=== PATIENT | male | born 1940 | race Caucasian/White ===

== ENCOUNTER 2018-10-11 18:38 | Inpatient (IN) ==
--- NOTE | 2018-10-11 18:54 | Emergency Department Note ---
Disposition Clinical Impression: Acute exacerbation of chronic obstructive airways disease Pneumonia Qualifiers: Pneumonia type: due to unspecified organism Laterality: right Lung location: lower lobe of lung Qualified Code(s): J18.1 - Lobar pneumonia, unspecified organism Sepsis Qualifiers: Sepsis type: sepsis due to unspecified organism Qualified Code(s): A41.9 - Sepsis, unspecified organism Disposition: Admitted As Inpatient Condition: Fair Time of Disposition: 21:33 General Adult HPI - General Chief complaint: ED Shortness of Breath/Dyspnea Stated complaint: MADDIE Time Seen by Provider: 10/11/18 18:54 Source: patient Limitations: no limitations Nursing Notes Reviewed: Yes Vital Signs Reviewed: Yes - History of Present Illness HPI Narrative: Patient is a 78-year-old male presenting with cough and fever. History of hypertension, hyperlipidemia and diabetes, which all treated by diet. Patient a lso with a known history of COPD, not chronically on oxygen at home. Patient states that he has been having increased cough with change in sputum with fever at home. Temperature at home was 102.0 Fahrenheit. Today he did have to use oxygen, had up to 5 L nasal cannula, as his oxygen dropped to 80% while walking. Patient denies any nausea, vomiting or recent abdominal pain. No urinary symptoms or changes in stool. He denies any recent hospitalizations or history of dialysis. No recent steroid or antibiotic use. Patient denies any chest pain. Pain Scale: 8 - Related Data Home Medications Medication Instructions Recorded Confirmed Baclofen [Lioresal] 10 mg PO TID 08/08/17 10/11/18 Cholecalciferol (D-3) [Vitamin D] 1,000 unit PO DAILY 08/08/17 10/11/18 Gabapentin [Neurontin] 600 mg PO TID 08/08/17 10/11/18 GlipiZIDE [Glipizide Xl] 5 mg PO DAILY 08/08/17 10/11/18 Lisinopril [Zestril] 20 mg PO DAILY 08/08/17 10/11/18 Cetirizine HCl [Zyrtec] 10 mg PO DAILY 10/11/18 10/11/18 Guaifenesin [Mucinex] 600 mg PO PRN PRN 10/11/18 10/11/18 Vitamin E Acid Succinate [Vitamin 400 units PO DAILY 10/11/18 10/11/18 E] Previous Rx's Medication Instructions Recorded Clopidogrel [Plavix] 75 mg PO DAILY #30 tablet 08/08/17 GuaiFENesin/Dextromethorphan 10 ml PO QID PRN #240 ml 05/19/18 [Tussin Dm Syrup] Allergies Allergy/AdvReac Type Severity Reaction Status Date / Time morphine Allergy Hives Verified 05/19/18 16:40 All systems ED: reviewed and negative except as stated. Review of Systems: As Per HPI Constitutional: Reports: fever, chills ENT ED: Reports: congestion Cardiovascular: Reports: dyspnea on exertion. Denies: chest pain, palpitations, syncope Respiratory: Reports: cough, dyspnea, sputum production. Denies: wheezes, hemoptysis Gastrointestinal: Denies: abdominal pain, nausea, vomiting Genitourinary: Denies: urgency Musculoskeletal: Denies: back pain Integumentary: Denies: rash Neurological: Denies: headache, weakness, confusion Psychiatric: Denies: anxiety Endocrine: Denies: fatigue Hematological/Lymphatic: Denies: easy bleeding Past Medical History - Past Medical History Medical history: Reports: COPD, diabetes Surgical history: Reports: orthopedic, other, other Psychiatric history: Reports: no psych history - Social History Smoking Status: Current every day smoker Smokeless Tobacco Status: No Alcohol use: Reports: none Drug use: Reports: none Physical Exam - General Limitations: no limitations General appearance: alert - Head Head exam: atraumatic, normocephalic, normal inspection - Eye Eye exam: Present: normal appearance, PERRL, EOMI - ENT ENT exam: mucous membranes dry - Chest Chest inspection: Present: normal inspection, symmetric chest wall rise - Respiratory Respiratory exam: Present: prolonged expiratory phase, other (Patient with diffuse rhonchi to the bases bilaterally, crackles to the right lower lobe) - Cardiovascular Cardiovascular exam: Present: normal rhythm, tachycardia - Abdominal Exam Abdominal exam: Present: soft, Non-Tender. Absent: tenderness, distention, guarding, rebound, rigidity - Extremities Exam Extremities exam: Present: normal inspection, full ROM. Absent: tenderness, pedal edema - Neurological Exam Neurological exam: Present: alert, oriented X3 - Psychiatric Psychiatric exam: Present: normal affect, normal mood - Skin Skin exam: Present: warm, dry, intact, normal color. Absent: diaphoresis Course Vital Signs Temperature 99.5 F 10/11/18 18:39 Pulse Rate 108 10/11/18 18:39 Respiratory Rate 24 10/11/18 18:39 Blood Pressure 146/69 10/11/18 18:39 O2 Sat by Pulse Oximetry 98 10/11/18 18:39 Temperature 98.7 F 10/11/18 22:26 Pulse Rate 122 10/11/18 22:26 Respiratory Rate 14 10/11/18 22:26 Blood Pressure 167/70 10/11/18 22:26 O2 Sat by Pulse Oximetry 96 10/11/18 22:26 Oxygen Delivery Oxygen Delivery Nasal Cannula Medical Decision Making - [facility] Narrative Medical decision making narrative: Patient is a 78-year-old male who is presenting with cough and fever. On arrival, patient is nontoxic however appears unwell, he is using increased oxygen at home with a baseline of no oxygen use, he had a tetanus up to 5 L today due to shortness of breath. Patient is tachycardic, he is afebrile but does feel warm. Nurse recheck temperature later on it was febrile 102. Patient was initially given 1 L normal saline with unknown pumping function. CBC, BMP, lactic acid, blood cultures, chest x-ray were initiated. Patient was also given a DuoNeb 3, prednisone 40 mg by mouth. On reevaluation, patient continues to have the crackles to the right lower base. He feels this is most likely clinical pneumonia although chest x-ray does not yet show opacification. Chronically he does appear dry suspect this is most likely pneumonia. No recent hospitalizations. We will go ahead and give the patient to second liter of fluids, as he remains tachycardic. CBC, BMP and urine to show the patient to be slightly dehydrated however no leukocytosis. No sign of acute kidney injury. As patient remains tachycardic, he remains on 4 L nasal cannula, he remains dyspneic and tachycardic, as well as pneumonia clinically feels that the patient would be most appropriate for admission at this time. Patient agrees with disposition of admission. - Medical Records Medical records reviewed: Yes I reviewed the patient's medical records. - Lab Data Lab results reviewed: Yes I reviewed the patient's lab results. Result diagrams: 10/11/18 18:44 10/11/18 18:44 Lab Results 10/11/18 10/11/18 10/11/18 Range/Units 18:44 18:44 18:44 WBC 8.3 (4.3-11.1) K/mcL RBC 3.45 L (4.19-5.50) M/mcL Hgb 12.3 L (12.9-16.9) g/dL Hct 36.9 L (37.5-50.1) % MCV 107.0 H (83.0-100.0) fL MCH 35.7 H (28.0-33.3) pg MCHC 33.3 (31.6-35.5) g/dL RDW 11.9 (11.5-14.5) % Plt Count 264 (140-400) K/mcL MPV 9.8 (9.4-12.4) fL Immature Gran % 0.2 (0-4) % Seg Neutrophils % 71.0 % Lymphocytes % 13.1 % Monocytes % 14.5 % Eosinophils % 0.7 % Basophils % 0.5 % Neutrophils # 5.9 (1.6-8.9) K/mcL Lymphocytes # 1.1 (0.6-4.6) K/mcL Monocytes # 1.2 (0.0-1.3) K/mcL Eosinophils # 0.1 (0.0-0.6) K/mcL Basophils # 0.0 (0.0-0.2) K/mcL PT 12.6 H (9.4-12.1) Seconds INR 1.1 APTT 29.9 (26.0-36.0) Seconds Sodium 138 (136-145) mEq/L Potassium 4.0 (3.5-5.1) mEq/L Chloride 100 (98-107) mEq/L Carbon Dioxide 29 (23-29) mEq/L BUN 14 (8-23) mg/dL Creatinine 1.01 (0.70-1.30) mg/dL Est GFR ( Amer) > 60 (> 60) Est GFR (Non-Af Amer) > 60 (> 60) BUN/Creatinine Ratio 14 (6-26) Glucose 177 H (70-105) mg/dL Calculated Osmolality 291 (280-300) Lactic Acid (0.5-2.2) mmol/L Calcium 9.5 (8.6-10.3) mg/dL Phosphorus 2.1 L (2.7-4.5) mg/dL Magnesium 1.8 (1.6-2.6) mg/dL Total Bilirubin 0.7 (0.3-1.0) mg/dL Direct Bilirubin 0.2 (0.0-0.2) mg/dL Indirect Bilirubin 0.5 (0.0-1.2) mg/dL AST 15 (13-39) Units/L ALT 8 (7-52) Units/L Alkaline Phosphatase 83 (34-104) Units/L Troponin I < 0.03 (< 0.04) ng/mL Serum Total Protein 7.0 (6.4-8.9) g/dL Albumin 4.0 (3.5-5.7) g/dL Globulin 3.0 (2.4-3.5) g/dL Albumin/Globulin Ratio 1.3 (1.1-2.2) Urine Color (Yellow) Urine Clarity (Clear) Urine pH (5.0-8.0) pH Units Ur Specific [place] (1.010-1.025) Urine Protein (Neg-Trace) mg/dL Urine Glucose (UA) (Normal) mg/dL Urine Ketones (Negative) mg/dL Urine Blood (Negative) Urine Nitrite (Negative) Urine Bilirubin (Negative) Urine Urobilinogen (Normal) mg/dL Ur Leukocyte Esterase (Negative) Urine Microscopic RBC (0-3) per hpf Urine Microscopic WBC (0-3) per hpf Ur Squamous Epith Cells (None-Few) per lpf Urine Bacteria (None-Few) per hpf Hyaline Casts (None-Few) per lpf Ur Culture Indicated? (NO) 10/11/18 10/11/18 Range/Units 19:43 20:25 WBC (4.3-11.1) K/mcL RBC (4.19-5.50) M/mcL Hgb (12.9-16.9) g/dL Hct (37.5-50.1) % MCV (83.0-100.0) fL MCH (28.0-33.3) pg MCHC (31.6-35.5) g/dL RDW (11.5-14.5) % Plt Count (140-400) K/mcL MPV (9.4-12.4) fL Immature Gran % (0-4) % Seg Neutrophils % % Lymphocytes % % Monocytes % % Eosinophils % % Basophils % % Neutrophils # (1.6-8.9) K/mcL Lymphocytes # (0.6-4.6) K/mcL Monocytes # (0.0-1.3) K/mcL Eosinophils # (0.0-0.6) K/mcL Basophils # (0.0-0.2) K/mcL PT (9.4-12.1) Seconds INR APTT (26.0-36.0) Seconds Sodium (136-145) mEq/L Potassium (3.5-5.1) mEq/L Chloride (98-107) mEq/L Carbon Dioxide (23-29) mEq/L BUN (8-23) mg/dL Creatinine (0.70-1.30) mg/dL Est GFR ( Amer) (> 60) Est GFR (Non-Af Amer) (> 60) BUN/Creatinine Ratio (6-26) Glucose (70-105) mg/dL Calculated Osmolality (280-300) Lactic Acid 1.2 (0.5-2.2) mmol/L Calcium (8.6-10.3) mg/dL Phosphorus (2.7-4.5) mg/dL Magnesium (1.6-2.6) mg/dL Total Bilirubin (0.3-1.0) mg/dL Direct Bilirubin (0.0-0.2) mg/dL Indirect Bilirubin (0.0-1.2) mg/dL AST (13-39) Units/L ALT (7-52) Units/L Alkaline Phosphatase (34-104) Units/L Troponin I (< 0.04) ng/mL Serum Total Protein (6.4-8.9) g/dL Albumin (3.5-5.7) g/dL Globulin (2.4-3.5) g/dL Albumin/Globulin Ratio (1.1-2.2) Urine Color Yellow (Yellow) Urine Clarity Clear (Clear) Urine pH 6.0 (5.0-8.0) pH Units Ur Specific [place] 1.026 H (1.010-1.025) Urine Protein 100 H (Neg-Trace) mg/dL Urine Glucose (UA) Normal (Normal) mg/dL Urine Ketones 15 H (Negative) mg/dL Urine Blood Negative (Negative) Urine Nitrite Negative (Negative) Urine Bilirubin Negative (Negative) Urine Urobilinogen 2.0 H (Normal) mg/dL Ur Leukocyte Esterase Negative (Negative) Urine Microscopic RBC 5-15 H (0-3) per hpf Urine Microscopic WBC 0-3 (0-3) per hpf Ur Squamous Epith Cells Moderate H (None-Few) per lpf Urine Bacteria None Seen (None-Few) per hpf Hyaline Casts None Seen (None-Few) per lpf Ur Culture Indicated? NO (NO) - Radiology Data Radiology results reviewed: Yes I reviewed the patient's radiology results. Chest X-Ray 10/11/18 19:15 IMPRESSION: Stable portable study. D/ / Heather Jernigan Cha, MD / Heather Jernigan Cha, MD Interpreting Provider: Heather Jernigan Cha, MD - EKG Data EKG #1 EKG attestation: Yes I reviewed and interpreted this EKG. EKG results narrative: EKG shows sinus tachycardia with regular rhythm, normal axis, no ischemic changes.
[2018-10-11] MEDS ORDERED: 0.9 % Sodium Chloride 1,000 ML IVC ONE ×2 (19:14→21:06)
[2018-10-11 19:32] LABS: Basophils % 0.5 %; Eosinophils # 0.1 K/mcL (0.0-0.6); Eosinophils % 0.7 %; Hematocrit 36.9 % (37.5-50.1); Hemoglobin 12.3 g/dL (12.9-16.9); Immature Granulocytes % 0.2 % (0-4); Lymphocytes # 1.1 K/mcL (0.6-4.6); Lymphocytes % 13.1 %; Mean Corpuscular HGB Conc 33.3 g/dL (31.6-35.5); Mean Corpuscular Hemoglobin 35.7 pg (28.0-33.3); Mean Platelet Volume 9.8 fL (9.4-12.4); Monocytes # 1.2 K/mcL (0.0-1.3); Monocytes % 14.5 %; Neutrophils # 5.9 K/mcL (1.6-8.9); Platelet Count 264 K/mcL (140-400); Red Blood Count 3.45 M/mcL (4.19-5.50); Red Cell Distribution Width 11.9 % (11.5-14.5); White Blood Count 8.3 K/mcL (4.3-11.1)
[2018-10-11 19:45] LABS: INR 1.1; Prothrombin Time 12.6 Seconds (9.4-12.1)
[2018-10-11 19:48] LABS: Activated Partial Thrombo Time 29.9 Seconds (26.0-36.0)
[2018-10-11 19:54] LABS: Alanine Aminotransferase 8 Units/L (7-52); Albumin/Globulin Ratio 1.3 (1.1-2.2); Alkaline Phosphatase 83 Units/L (34-104); Aspartate Amino Transferase 15 Units/L (13-39); BUN/Creatinine Ratio 14 (6-26); Bilirubin,Direct 0.2 mg/dL (0.0-0.2); Bilirubin,Indirect 0.5 mg/dL (0.0-1.2); Bilirubin,Total 0.7 mg/dL (0.3-1.0); Blood Urea Nitrogen 14 mg/dL (8-23); Calcium 9.5 mg/dL (8.6-10.3); Carbon Dioxide 29 mEq/L (23-29); Chloride 100 mEq/L (98-107); Glucose 177 mg/dL (70-105); Magnesium 1.8 mg/dL (1.6-2.6); Osmolality,Calculated 291 (280-300); Phosphorous 2.1 mg/dL (2.7-4.5); Sodium 138 mEq/L (136-145); Troponin I < 0.03 ng/mL (< 0.04); eGFR For African Americans > 60 (> 60); eGFR For Non-African Americans > 60 (> 60)
[2018-10-11] MEDS ORDERED: Ipratropium/Albuterol Neb 3 ML IH ONE (20:04)
[2018-10-11] MEDS ORDERED: methylPREDNISolone 125 MG/2 ML VIAL IVP ONE (20:04)
[2018-10-11] MEDS ORDERED: predniSONE 20 MG TABLET PO ONE (20:06)
[2018-10-11 20:37] LABS: Bilirubin,Urine Negative (Negative); Blood,Urine Negative (Negative); Clarity,Urine Clear (Clear); Glucose,Urine (UA) Normal (Normal); Ketones,Urine 15 mg/dL (Negative); Leukocyte Esterase,Urine Negative (Negative); Nitrite,Urine Negative (Negative); Protein,Urine 100 mg/dL (Neg-Trace); Specific Gravity,Urine 1.026 (1.010-1.025)
[2018-10-11 20:38] LABS: Bacteria,Urine None Seen per hpf (None-Few); Hyaline Casts,Urine None Seen per lpf (None-Few); Squamous Epithelial Cell,Urine Moderate per lpf (None-Few); WBC,Urine 0-3 per hpf (0-3)
[2018-10-11 20:39] LABS: Color,Urine Yellow (Yellow)
[2018-10-11] MEDS ORDERED: Albuterol Neb 1.25 MG/3 ML VIAL IH ONE (21:06)
[2018-10-11] MEDS ORDERED: cefTRIAXone 1,000 MG in Water for inj. (sterile) 10 ML IVP ONE (21:07)
[2018-10-11] MEDS ORDERED: Azithromycin 500 MG in D5% in Water 250 ML IVPB ONE (21:07)
[2018-10-11] MEDS ORDERED: Albuterol 2.5 MG/3 ML NEBULIZER IH STA (21:15)
--- NOTE | 2018-10-11 21:19 | Emergency Department Note ---
Disposition Clinical Impression: Acute exacerbation of chronic obstructive airways disease Pneumonia Qualifiers: Pneumonia type: due to unspecified organism Laterality: right Lung location: lower lobe of lung Qualified Code(s): J18.1 - Lobar pneumonia, unspecified organism Sepsis Qualifiers: Sepsis type: sepsis due to unspecified organism Qualified Code(s): A41.9 - Sepsis, unspecified organism Disposition: Admitted As Inpatient Condition: Fair Time of Disposition: 21:33 General Adult HPI - General Chief complaint: ED Shortness of Breath/Dyspnea Stated complaint: MADDIE Time Seen by Provider: 10/11/18 18:54 Source: patient Limitations: no limitations - History of Present Illness Pain Scale: 8 - Related Data Home Medications Medication Instructions Recorded Confirmed Baclofen [Lioresal] 10 mg PO TID 08/08/17 10/11/18 Cholecalciferol (D-3) [Vitamin D] 1,000 unit PO DAILY 08/08/17 10/11/18 Gabapentin [Neurontin] 600 mg PO TID 08/08/17 10/11/18 GlipiZIDE [Glipizide Xl] 5 mg PO DAILY 08/08/17 10/11/18 Lisinopril [Zestril] 20 mg PO DAILY 08/08/17 10/11/18 Cetirizine HCl [Zyrtec] 10 mg PO DAILY 10/11/18 10/11/18 Guaifenesin [Mucinex] 600 mg PO PRN PRN 10/11/18 10/11/18 Vitamin E Acid Succinate [Vitamin 400 units PO DAILY 10/11/18 10/11/18 E] Previous Rx's Medication Instructions Recorded Clopidogrel [Plavix] 75 mg PO DAILY #30 tablet 08/08/17 GuaiFENesin/Dextromethorphan 10 ml PO QID PRN #240 ml 05/19/18 [Tussin Dm Syrup] Allergies Allergy/AdvReac Type Severity Reaction Status Date / Time morphine Allergy Hives Verified 05/19/18 16:40 Past Medical History - Past Medical History Medical history: Reports: COPD, diabetes Surgical history: Reports: orthopedic, other, other Psychiatric history: Reports: no psych history - Social History Smoking Status: Current every day smoker Smokeless Tobacco Status: No Alcohol use: Reports: none Drug use: Reports: none Physical Exam - General Limitations: no limitations General appearance: alert Course Vital Signs Temperature 99.5 F 10/11/18 18:39 Pulse Rate 108 10/11/18 18:39 Respiratory Rate 24 10/11/18 18:39 Blood Pressure 146/69 10/11/18 18:39 O2 Sat by Pulse Oximetry 98 10/11/18 18:39 Temperature 102.1 F H 10/11/18 20:57 Pulse Rate 125 10/11/18 20:57 Respiratory Rate 30 10/11/18 20:57 Blood Pressure 156/91 10/11/18 20:57 O2 Sat by Pulse Oximetry 98 10/11/18 20:57 Oxygen Delivery Oxygen Delivery Nasal Cannula Medical Decision Making - Lab Data Result diagrams: 10/11/18 18:44 10/11/18 18:44 Lab Results 10/11/18 10/11/18 10/11/18 Range/Units 18:44 18:44 18:44 WBC 8.3 (4.3-11.1) K/mcL RBC 3.45 L (4.19-5.50) M/mcL Hgb 12.3 L (12.9-16.9) g/dL Hct 36.9 L (37.5-50.1) % MCV 107.0 H (83.0-100.0) fL MCH 35.7 H (28.0-33.3) pg MCHC 33.3 (31.6-35.5) g/dL RDW 11.9 (11.5-14.5) % Plt Count 264 (140-400) K/mcL MPV 9.8 (9.4-12.4) fL Immature Gran % 0.2 (0-4) % Seg Neutrophils % 71.0 % Lymphocytes % 13.1 % Monocytes % 14.5 % Eosinophils % 0.7 % Basophils % 0.5 % Neutrophils # 5.9 (1.6-8.9) K/mcL Lymphocytes # 1.1 (0.6-4.6) K/mcL Monocytes # 1.2 (0.0-1.3) K/mcL Eosinophils # 0.1 (0.0-0.6) K/mcL Basophils # 0.0 (0.0-0.2) K/mcL PT 12.6 H (9.4-12.1) Seconds INR 1.1 APTT 29.9 (26.0-36.0) Seconds Sodium 138 (136-145) mEq/L Potassium 4.0 (3.5-5.1) mEq/L Chloride 100 (98-107) mEq/L Carbon Dioxide 29 (23-29) mEq/L BUN 14 (8-23) mg/dL Creatinine 1.01 (0.70-1.30) mg/dL Est GFR ( Amer) > 60 (> 60) Est GFR (Non-Af Amer) > 60 (> 60) BUN/Creatinine Ratio 14 (6-26) Glucose 177 H (70-105) mg/dL Calculated Osmolality 291 (280-300) Lactic Acid (0.5-2.2) mmol/L Calcium 9.5 (8.6-10.3) mg/dL Phosphorus 2.1 L (2.7-4.5) mg/dL Magnesium 1.8 (1.6-2.6) mg/dL Total Bilirubin 0.7 (0.3-1.0) mg/dL Direct Bilirubin 0.2 (0.0-0.2) mg/dL Indirect Bilirubin 0.5 (0.0-1.2) mg/dL AST 15 (13-39) Units/L ALT 8 (7-52) Units/L Alkaline Phosphatase 83 (34-104) Units/L Troponin I < 0.03 (< 0.04) ng/mL Serum Total Protein 7.0 (6.4-8.9) g/dL Albumin 4.0 (3.5-5.7) g/dL Globulin 3.0 (2.4-3.5) g/dL Albumin/Globulin Ratio 1.3 (1.1-2.2) Urine Color (Yellow) Urine Clarity (Clear) Urine pH (5.0-8.0) pH Units Ur Specific [place] (1.010-1.025) Urine Protein (Neg-Trace) mg/dL Urine Glucose (UA) (Normal) mg/dL Urine Ketones (Negative) mg/dL Urine Blood (Negative) Urine Nitrite (Negative) Urine Bilirubin (Negative) Urine Urobilinogen (Normal) mg/dL Ur Leukocyte Esterase (Negative) Urine Microscopic RBC (0-3) per hpf Urine Microscopic WBC (0-3) per hpf Ur Squamous Epith Cells (None-Few) per lpf Urine Bacteria (None-Few) per hpf Hyaline Casts (None-Few) per lpf Ur Culture Indicated? (NO) 10/11/18 10/11/18 Range/Units 19:43 20:25 WBC (4.3-11.1) K/mcL RBC (4.19-5.50) M/mcL Hgb (12.9-16.9) g/dL Hct (37.5-50.1) % MCV (83.0-100.0) fL MCH (28.0-33.3) pg MCHC (31.6-35.5) g/dL RDW (11.5-14.5) % Plt Count (140-400) K/mcL MPV (9.4-12.4) fL Immature Gran % (0-4) % Seg Neutrophils % % Lymphocytes % % Monocytes % % Eosinophils % % Basophils % % Neutrophils # (1.6-8.9) K/mcL Lymphocytes # (0.6-4.6) K/mcL Monocytes # (0.0-1.3) K/mcL Eosinophils # (0.0-0.6) K/mcL Basophils # (0.0-0.2) K/mcL PT (9.4-12.1) Seconds INR APTT (26.0-36.0) Seconds Sodium (136-145) mEq/L Potassium (3.5-5.1) mEq/L Chloride (98-107) mEq/L Carbon Dioxide (23-29) mEq/L BUN (8-23) mg/dL Creatinine (0.70-1.30) mg/dL Est GFR ( Amer) (> 60) Est GFR (Non-Af Amer) (> 60) BUN/Creatinine Ratio (6-26) Glucose (70-105) mg/dL Calculated Osmolality (280-300) Lactic Acid 1.2 (0.5-2.2) mmol/L Calcium (8.6-10.3) mg/dL Phosphorus (2.7-4.5) mg/dL Magnesium (1.6-2.6) mg/dL Total Bilirubin (0.3-1.0) mg/dL Direct Bilirubin (0.0-0.2) mg/dL Indirect Bilirubin (0.0-1.2) mg/dL AST (13-39) Units/L ALT (7-52) Units/L Alkaline Phosphatase (34-104) Units/L Troponin I (< 0.04) ng/mL Serum Total Protein (6.4-8.9) g/dL Albumin (3.5-5.7) g/dL Globulin (2.4-3.5) g/dL Albumin/Globulin Ratio (1.1-2.2) Urine Color Yellow (Yellow) Urine Clarity Clear (Clear) Urine pH 6.0 (5.0-8.0) pH Units Ur Specific [place] 1.026 H (1.010-1.025) Urine Protein 100 H (Neg-Trace) mg/dL Urine Glucose (UA) Normal (Normal) mg/dL Urine Ketones 15 H (Negative) mg/dL Urine Blood Negative (Negative) Urine Nitrite Negative (Negative) Urine Bilirubin Negative (Negative) Urine Urobilinogen 2.0 H (Normal) mg/dL Ur Leukocyte Esterase Negative (Negative) Urine Microscopic RBC 5-15 H (0-3) per hpf Urine Microscopic WBC 0-3 (0-3) per hpf Ur Squamous Epith Cells Moderate H (None-Few) per lpf Urine Bacteria None Seen (None-Few) per hpf Hyaline Casts None Seen (None-Few) per lpf Ur Culture Indicated? NO (NO) Attestation Statement - Attestation Attestation: I examined this patient and my medical decision-making was reviewed with the Resident Physician. I agree with the documented findings, disposition and treatment plan as described except to the extent set forth below.\ With initial negative chest x-ray, working diagnosis was COPD exacerbation and blood cultures were held.. However, patient spiked a temperature. Had no response to initial round of nebulizer treatment. Has abnormal breath sounds on expiration throughout both lung medrano, but has not territory crackles at the right base. Clinically the picture is consistent with pneumonia. Blood cultures were reordered since the patient meets Sirs criteria and will be dasha ated for sepsis. Clinically he does not seem dry, but his specific gravity is a little high and there is a small amount of ketones in his urine, so the possibility of an infiltrate that is not evident on chest x-ray will become evident as he becomes more hydrated is considered. Lactate was normal. Giving antibiotics and additional Albuterol, paging hospitalist for admission. Procedure, emergency bedside Pocus for volume assessment: Procedure performed by me, images obtained and interpreted by me and archived in PACS. The inferior vena cava was measured within the liver at 1.86 cm with compression to 0.47 cm with inspiration.
[2018-10-12] MEDS ORDERED: Ondansetron 4 MG/2 ML VIAL IVP PRN (00:04)
[2018-10-12] MEDS ORDERED: Naloxone 0.4 MG/ML INJ IVP PRN (00:04)
[2018-10-12] MEDS ORDERED: Furosemide 40 MG/4 ML VIAL IVP ONE (00:04)
[2018-10-12] MEDS ORDERED: Ipratropium/Albuterol Neb 3 ML IH PRN (00:04)
[2018-10-12] MEDS ORDERED: Acetaminophen 325 MG TABLET PO PRN (00:04)
[2018-10-12] MEDS ORDERED: Baclofen 10 MG TABLET PO PRN (00:09)
[2018-10-12 01:10] LABS: Basophils % 0.1 %; Hematocrit 33.9 % (37.5-50.1); Hemoglobin 11.4 g/dL (12.9-16.9); Immature Granulocytes % 0.1 % (0-4); Lymphocytes # 0.4 K/mcL (0.6-4.6); Lymphocytes % 5.3 %; Mean Corpuscular HGB Conc 33.6 g/dL (31.6-35.5); Mean Corpuscular Hemoglobin 35.5 pg (28.0-33.3); Mean Corpuscular Volume 105.6 fL (83.0-100.0); Mean Platelet Volume 9.6 fL (9.4-12.4); Monocytes # 0.7 K/mcL (0.0-1.3); Monocytes % 9.3 %; Neutrophils # 6.1 K/mcL (1.6-8.9); Platelet Count 253 K/mcL (140-400); Red Blood Count 3.21 M/mcL (4.19-5.50); Red Cell Distribution Width 11.9 % (11.5-14.5); Segmented Neutrophils % 85.2 %; White Blood Count 7.2 K/mcL (4.3-11.1)
[2018-10-12 01:27] LABS: Alanine Aminotransferase 9 Units/L (7-52); Albumin 3.7 g/dL (3.5-5.7); Albumin/Globulin Ratio 1.3 (1.1-2.2); Alkaline Phosphatase 80 Units/L (34-104); Aspartate Amino Transferase 17 Units/L (13-39); BUN/Creatinine Ratio 13 (6-26); Bilirubin,Total 0.5 mg/dL (0.3-1.0); Blood Urea Nitrogen 12 mg/dL (8-23); Calcium 8.7 mg/dL (8.6-10.3); Carbon Dioxide 25 mEq/L (23-29); Chloride 102 mEq/L (98-107); Globulin 2.8 g/dL (2.4-3.5); Glucose 256 mg/dL (70-105); Magnesium 1.6 mg/dL (1.6-2.6); Osmolality,Calculated 293 (280-300); Potassium 3.9 mEq/L (3.5-5.1); Sodium 137 mEq/L (136-145); Total Protein 6.5 g/dL (6.4-8.9); eGFR For African Americans > 60 (> 60); eGFR For Non-African Americans > 60 (> 60)
[2018-10-12] MEDS ORDERED: Melatonin 3 MG TABLET PO PRN (02:06)
[2018-10-12] MEDS ORDERED: D5% in Water 1,000 ML IVC PRN (02:08)
[2018-10-12] MEDS ORDERED: Dextrose Gel 15 GM/37.5 ML TUBE PO PRN ×2 (02:08)
[2018-10-12] MEDS ORDERED: *HR* Dextrose 50 % in Water (Syg) 50 ML SYRINGE IVP PRN (02:08)
--- NOTE | 2018-10-12 04:24 | Internal Med History&Physical ---
Date of Encounter: 10/12/18 Time of Encounter: 00:05 Internal Medicine - H&P: HPI Chief complaint: fever, cough, SOB Admitted From: Emergency Dept Plans for Post Hospital Care: Home History of present illness: Mr. Ac is a 78 year old male who presents with complaints of fever, cough, shortness of breath, and fatigue for the last 2-3 days. He has oxygen at home which he wears on rare occasions. However, he was using it 06/11 for last 2 days and had increased his oxygen without relief. Therefore, she came to ER. Workup in the ER was concerning for pneumonia based upon clinical exam despite a negative chest x-ray. He was therefore started on antibiotics, aggressive fluid hydration, aerosols, and admitted to hospitalist service. When I saw the patient, he appeared to be in significant respiratory distress. He states he felt worse compared to his initial presentation in the ER. Symptoms were much worse as he finished a second liter bolus of fluids. I asked his nurse to stop his IV fluids, and I ordered a one-time dose of Lasix. He had significant improvement with that measure and is resting comfortably now. He does admit to having had fever and cough with mild productive sputum. He denies any wheezing. He denies any vomiting or diarrhea. He is a chronic long-time smoker and continues to smoke. Past Med Surg Social Fam HX - Past Medical History Attestation: Yes The following information was validated with the patient. Source: patient, old records reviewed Medical history: COPD, DVT, diabetes Additional medical history: pernicious anemia, Psychiatric history: no psych history - Past Surgical History Surgical History: orthopedic, other, other - Social History Smoking Status: Current every day smoker Packs per day: 2 Smokeless Tobacco Status: No Alcohol use: none Drug use: none Current living situation: Home, With Family Activity Level: Independent ambulation Recent Out of Country Travel Within the Last 8 Weeks: No - Family History Mother Living Status: Hx Family Respiratory Disorders: No Father Living Status: Hx Family Respiratory Disorders: Yes Internal Medicine - H&P: Meds Baclofen [Lioresal] 10 mg PO TID 08/08/17 [History] Cholecalciferol (D-3) [Vitamin D] 1,000 unit PO DAILY 08/08/17 [History] Clopidogrel [Plavix] 75 mg PO DAILY #30 tablet 08/08/17 [Rx] Gabapentin [Neurontin] 600 mg PO TID 08/08/17 [History] GlipiZIDE [Glipizide Xl] 5 mg PO DAILY 08/08/17 [History] Lisinopril [Zestril] 20 mg PO DAILY 08/08/17 [History] GuaiFENesin/Dextromethorphan [Tussin Dm Syrup] 10 ml PO QID PRN #240 ml 05/19/18 [Rx] Cetirizine HCl [Zyrtec] 10 mg PO DAILY 10/11/18 [History] Guaifenesin [Mucinex] 600 mg PO PRN PRN 10/11/18 [History] Vitamin E Acid Succinate [Vitamin E] 400 units PO DAILY 10/11/18 [History] Allergy/AdvReac Type Severity Reaction Status Date / Time morphine Allergy Hives Verified 05/19/18 16:40 - Constitutional Constitutional: chills, fever(s), no night sweats - EENT Eyes: no blurry vision, no change in vision Ears: no ear pain, no tinnitus Nose, mouth and throat: no nasal congestion, no sore throat - Cardiovascular Cardiovascular ROS IM: diaphoresis, dyspnea, dyspnea on exertion, orthopnea, paroxysmal nocturnal dyspnea, no chest pain - Respiratory Respiratory: cough, dyspnea, chest congestion, change in phlegm color - Gastrointestinal Gastrointestinal: no abdominal pain, no diarrhea, no hematemesis, no hematochezia, no melena, no vomiting - Genitourinary Genitourinary ROS male: no dysuria, no flank pain, no hematuria - Musculoskeletal Musculoskeletal ROS IM: no arthralgias, no back pain - Integumentary Integumentary IM: no rash, no jaundice - Neurological Neurological ROS: no dizziness, no focal weakness, no frequent falls, no headache(s) - Psychiatric Psychiatric: no anxiety, no depression - Endocrine Endocrine IM: no polydipsia, no polyuria - Allergic/Immunologic Allergic/Immunologic: no GI upset with certain foods - Constitutional Vitals: Temp Pulse Resp BP Pulse Ox 99.0 F 103 16 154/62 93 10/12/18 03:38 10/12/18 03:38 10/12/18 03:38 10/12/18 03:38 10/12/18 03:38 General appearance: Present: cooperative, mild distress, A&O X 3, pleasant, answers questions appropriately Exam: see below - Head Head exam: Present: atraumatic, normal inspection - Eye Eye exam: Present: EOMI, PERRL. Absent: scleral icterus Pupils: Present: normal accommodation - ENT ENT exam: Present: mucous membranes dry, normal exam, normal oropharynx - Neck Neck exam general surgery: Present: full ROM, supple, trachea midline. Absent: lymphadenopathy, tenderness, nuchal rigidity, thyromegaly - Respiratory Respiratory exam: Present: accessory muscle use, decreased breath sounds, rales (both lungsover intermediate up), respiratory distress, rhonchi, tachypnea. Absent: prolonged expiratory phase, wheezes - Cardiovascular Cardiovascular exam: Present: distant heart sounds, +S1, +S2, systolic murmur ( grade 1). Absent: diastolic murmur - GI/Abdominal GI/Abdominal exam: Present: normal bowel sounds, soft. Absent: guarding, hepatomegaly, mass, rebound, splenomegaly, tenderness - Extremities Exam Extremities exam: Present: full ROM, normal capillary refill, warm, radial pulses palpable and symmetrical. Absent: calf tenderness, joint swelling, pedal edema, tenderness - Back Exam Back exam: Absent: CVA tenderness (L), CVA tenderness (R) - Neurological Exam Neurological exam: Present: alert, CN II-XII intact, oriented X3, no focal deficits - Psychiatric Psychiatric exam: Present: normal affect, normal mood - Skin Skin exam: Present: dry, intact, warm Internal Med - H&P Results - Labs CBC & Chem 7: 10/12/18 00:46 10/12/18 00:46 Labs: Short CBC 10/11/18 10/12/18 Range/Units 18:44 00:46 WBC 8.3 7.2 (4.3-11.1) K/mcL Hgb 12.3 L 11.4 L (12.9-16.9) g/dL Hct 36.9 L 33.9 L (37.5-50.1) % Plt Count 264 253 (140-400) K/mcL Neutrophils # 5.9 6.1 (1.6-8.9) K/mcL BMP 10/11/18 10/12/18 18:44 00:46 Sodium 138 137 Potassium 4.0 3.9 Chloride 100 102 Carbon Dioxide 29 25 BUN 14 12 Creatinine 1.01 0.91 Glucose 177 H 256 H Calcium 9.5 8.7 Cardiac Enzymes 10/11/18 10/12/18 Range/Units 18:44 00:46 Troponin I < 0.03 0.06 H* (< 0.04) ng/mL Liver Function 10/11/18 10/12/18 Range/Units 18:44 00:46 Total Bilirubin 0.7 0.5 (0.3-1.0) mg/dL Direct Bilirubin 0.2 (0.0-0.2) mg/dL AST 15 17 (13-39) Units/L ALT 8 9 (7-52) Units/L Alkaline Phosphatase 83 80 (34-104) Units/L Albumin 4.0 3.7 (3.5-5.7) g/dL Urine 10/11/18 Range/Units 20:25 Urine Color Yellow (Yellow) Urine Clarity Clear (Clear) Urine pH 6.0 (5.0-8.0) pH Units Ur Specific [place] 1.026 H (1.010-1.025) Urine Protein 100 H (Neg-Trace) mg/dL Urine Glucose (UA) Normal (Normal) mg/dL - Impressions ITS Impressions Chest X-Ray 10/11/18 19:15 IMPRESSION: Stable portable study. D/ / Heather Jernigan Cha, MD / Heather Jernigan Cha, MD Interpreting Provider: Heather Jernigan Cha, MD - Diagnostic Studies Chest x-ray Status: image reviewed by me (negative) - Assessment and Plan (1) Pneumonia Current Visit: Yes Status: Acute Assessment and plan: 1. Blood cultures obtained in ER. 2. Will order sputum culture and Gram stain. 3. Continue Rocephin and Zithromax. 4. Oxygen and aerosols PRN. 5. P-lock IVF and give one time dose of Lasix. 6; Trend troponins and EKG's. Qualifiers: Pneumonia type: due to unspecified organism Laterality: right Lung location: lower lobe of lung Qualified Code(s): J18.1 - Lobar pneumonia, unspecified organism (2) Type 2 diabetes mellitus Current Visit: Yes Status: Chronic Assessment and plan: 1. Hold oral meds. 2. Will order SSI and monitor glucose closely. Qualifiers: Diabetes mellitus watermaster insulin use: without jail use Diabetes mellitus complication status: without complication Qualified Code(s): E11.9 - Type 2 diabetes mellitus without complications (3) CHF (congestive heart failure) Current Visit: Yes Status: Suspected Assessment and plan: 1. Stop IVF and give a one time dose of Lasix. 2. Trend troponins/EKG's. 3. Order ECHO. 4. Monitor I/O. Restrict fluid intake. Qualifiers: Heart failure type: unspecified Heart failure chronicity: acute Qualified Code(s): I50.9 - Heart failure, unspecified (4) DVT prophylaxis Current Visit: Yes Status: Acute Assessment and plan: 1. Heparin SQ.
[2018-10-12] MEDS ORDERED: *HR* Heparin 5,000 UNIT/ML VIAL SQ SCH (06:00)
[2018-10-12] MEDS ORDERED: Lisinopril 20 MG TABLET PO SCH (09:00)
[2018-10-12] MEDS: Cholecalciferol (D-3) 1,000 UNIT TABLET PO SCH (09:01)
[2018-10-12] MEDS: Gabapentin 300 MG CAPSULE PO SCH ×3 (09:01→21:46)
[2018-10-12] MEDS: cefTRIAXone 2,000 MG in Water for inj. (sterile) 20 ML IVP SCH (09:02)
[2018-10-12] MEDS: Loratadine 10 MG TABLET PO SCH (09:02)
[2018-10-12] MEDS: Insulin LISPRO 300 UNITS/3 ML VIAL SQ SCH ×4 (09:03→21:47)
--- NOTE | 2018-10-12 10:45 | Cardiology Consult Note ---
<Umair Resendiz - Last Filed: 10/12/18 11:56> Date of Encounter: 10/12/18 Time of Encounter: 10:45 Assessment and Plan (1) Acute exacerbation of chronic obstructive airways disease Current Visit: Yes Status: Acute Per Cardiology: Presented with acute on chronic COPD exacerbation. Per review of medical records apparent increased sensation of home oxygen. On treatments and antibiotic per primary service. (2) Elevated troponin I measurement Current Visit: Yes Status: Acute Per Cardiology: Initially negative and then mildly elevated a 0.06 and 0.07. Suspect type II demand ischemia in setting of acute on chronic COPD exacerbation and hypertension. Echo pending. Further recommendations pending echocardiogram and further assessment patient and/or discussion with family. On Plavix and ACEI. Discussed and reviewed with Dr. Traore. Discussion w patient/family: The assessment and plan as outlined above was discussed with the patient and/or family members who expressed understanding and agreement. All questions were answered. Thank you for involving us in the care of your patient. Please call with any questions. History of Present Illness Consult date: 10/12/18 Consult reason: Elevated Trop Chief complaint: SOB History of present illness: Mr. Ac is a 78 year old male with relevant past medical history of DVT, nicotine abuse, DM2, COPD-- has home O2 PRN, PAD-- left iliac stenting 07/2017. Cardiology consult for elevated troponin. Patient seen with no family at bedside. Alert person and year. Patient thought he was at [facility] [place]. Patient somewhat a poor historian and difficult to obtain medical information and history of present illness. Speech somewhat garbled and does not answer questions directly. He did confirm he presented with worsening shortness of breath. It appears he may have had some chest pressure yesterday evening. No known history of CAD on however patient could not confirm. Past Med Surg Social Fam HX - Past Medical History Attestation: Yes The following information was validated with the patient. Source: patient, old records reviewed Medical history: COPD, DVT, diabetes Additional medical history: pernicious anemia, Psychiatric history: no psych history - Past Surgical History Surgical History: orthopedic, other, other - Social History Smoking Status: Current every day smoker Packs per day: 2 Smokeless Tobacco Status: No Alcohol use: none Drug use: none - Family History Mother Living Status: Hx Family Respiratory Disorders: No Father Living Status: Hx Family Respiratory Disorders: Yes Medications and Allergies Baclofen [Lioresal] 10 mg PO TID 08/08/17 [History] Cholecalciferol (D-3) [Vitamin D] 1,000 unit PO DAILY 08/08/17 [History] Clopidogrel [Plavix] 75 mg PO DAILY #30 tablet 08/08/17 [Rx] Gabapentin [Neurontin] 600 mg PO TID 08/08/17 [History] GlipiZIDE [Glipizide Xl] 5 mg PO DAILY 08/08/17 [History] Lisinopril [Zestril] 20 mg PO DAILY 08/08/17 [History] GuaiFENesin/Dextromethorphan [Tussin Dm Syrup] 10 ml PO QID PRN #240 ml 05/19/18 [Rx] Cetirizine HCl [Zyrtec] 10 mg PO DAILY 10/11/18 [History] Guaifenesin [Mucinex] 600 mg PO PRN PRN 10/11/18 [History] Vitamin E Acid Succinate [Vitamin E] 400 units PO DAILY 10/11/18 [History] HYDROmorphone 8 mg PO Q4H PRN 10/12/18 [History] Allergy/AdvReac Type Severity Reaction Status Date / Time morphine Allergy Hives Verified 05/19/18 16:40 All Systems Review: The remainder of the systems were reviewed and are negative - Cardiovascular Cardiovascular: as per HPI, chest pain at rest, dyspnea at rest, dyspnea on exertion Physical Examination Vital Signs, Last 4 Hours Temp Pulse Resp BP Pulse Ox 10/12/18 06:53 98.6 F 111 19 185/84 95 HEENT: Atraumatic, Normocephaly, Mucus Membranes Moist Neck: No JVD, Normal carotid pulses Cardiac: Reg Rate and Rhythm, Normal S1 and S2, No Murmur Lungs: Other (Conversational dyspnea noted, diminished breath sounds throughout, respirations mildly labored at rest) Neuro: Alert and responsive, Other (to person and time, speech somewhat garbled, does not provide direct answers to questions) Abdomen: Soft, Non-Tender Skin: No rashes noted on visualized skin, Other (grayish in appearance) Musculoskeletal: No Chest Wall Tenderness Extremities: No Clubbing, No Cyanosis, No Edema, Normal Pulses Results 10/12/18 00:46 10/12/18 00:46 Lab Results Laboratory Tests 10/11/18 10/11/18 10/12/18 18:44 18:44 00:46 WBC Hgb Hct INR 1.1 Creatinine Est GFR (Non-Af Amer) Magnesium AST ALT Troponin I < 0.03 0.06 H* 10/12/18 10/12/18 10/12/18 00:46 00:46 06:09 WBC 7.2 Hgb 11.4 L Hct 33.9 L INR Creatinine 0.91 Est GFR (Non-Af Amer) > 60 Magnesium 1.6 AST 17 ALT 9 Troponin I 0.07 H* ITS Impressions Chest X-Ray 10/11/18 19:15 IMPRESSION: Stable portable study. D/ / Heather Jernigan Cha, MD / Heather Jernigan Cha, MD Interpreting Provider: Heather Jernigan Cha, MD Active Medications Acetaminophen (Tylenol) 650 mg PO Q6HR PRN PRN Reason: Mild Pain/Fever Stop: 04/13/19 00:05 Albuterol/Ipratropium (Duoneb) 3 ml IH [id number] PRN PRN Reason: Shortness Of Breath/Wheezing Stop: 04/13/19 00:05 Baclofen (Lioresal) 10 mg PO TID PRN PRN Reason: Muscle Spasm Stop: 04/13/19 00:10 Clopidogrel Bisulfate (Plavix) 75 mg PO DAILY [facility] Stop: 04/13/19 09:01 Last Admin: 10/12/18 09:01 Dose: 75 mg Documented by: Dextrose/Water (Dextrose 50% (Syg)) 25 ml IVP AD PRN PRN Reason: Hypoglycemia Stop: 04/13/19 02:09 Gabapentin (Neurontin) 600 mg PO TID [facility] Stop: 04/13/19 09:01 Last Admin: 10/12/18 09:01 Dose: 600 mg Documented by: Glucagon (Glucagen) 1 mg IM ONCE PRN PRN Reason: Hypoglycemia Stop: 04/13/19 02:09 Glucose (Gluctose) 15 gm PO ONCE PRN PRN Reason: Hypoglycemia Stop: 04/13/19 02:09 Glucose (Gluctose) 30 gm PO ONCE PRN PRN Reason: Hypoglycemia Stop: 04/13/19 02:09 Guaifenesin (Mucinex) 600 mg PO Q12H PRN PRN Reason: Cough Stop: 04/13/19 00:10 Heparin Sodium (Porcine) (Heparin) 5,000 unit SQ Q12HCO [facility] Stop: 04/13/19 06:01 Last Admin: 10/12/18 06:29 Dose: 5,000 unit Documented by: Azithromycin 500 mg/ Dextrose 250 mls @ 252 mls/hr IVPB Q24H [facility] Stop: 04/13/19 21:01 Ceftriaxone Sodium 2,000 mg/ (Sterile Water) 20 mls @ 600 mls/hr IVP Q24H [facility] Stop: 04/13/19 09:01 Last Admin: 10/12/18 09:02 Dose: 600 mls/hr Documented by: Dextrose (Dextrose 5%) 1,000 mls @ 100 mls/hr IVC .Q10H PRN PRN Reason: HYPOGLYCEMIA Stop: 04/13/19 02:09 Insulin Human Lispro (Humalog) 0 units SQ TIDAC [facility]; Protocol Stop: 04/13/19 07:31 Last Admin: 10/12/18 09:03 Dose: 4 units Documented by: Insulin Human Lispro (Humalog) 0 units SQ [facility]; Protocol Stop: 04/13/19 21:01 Lisinopril (Zestril) 20 mg PO DAILY [facility]; Protocol Stop: 04/13/19 09:01 Last Admin: 10/12/18 09:01 Dose: 20 mg Documented by: Loratadine (Claritin) 10 mg PO DAILY [facility] Stop: 04/13/19 09:01 Last Admin: 10/12/18 09:02 Dose: 10 mg Documented by: Melatonin (Melatonin) 1.5 mg PO HS PRN PRN Reason: Insomnia Stop: 04/13/19 02:07 Last Admin: 10/12/18 02:17 Dose: 1.5 mg Documented by: Methylprednisolone (Solu-Medrol) 40 mg IVP Q8HR [facility] Stop: 04/13/19 16:01 Naloxone HCl (Narcan) 0.4 mg IVP Q2MPRN PRN PRN Reason: SEE COMMENTS Stop: 04/13/19 00:05 Ondansetron HCl (Zofran) 4 mg IVP Q8HR PRN PRN Reason: Nausea And Vomiting Stop: 04/13/19 00:05 Vitamin D (Vitamin D) 1,000 unit PO DAILY [facility] Stop: 04/13/19 09:01 Last Admin: 10/12/18 09:01 Dose: 1,000 unit Documented by: Vitamin E (Vitamin E) 400 unit PO DAILY [facility] Stop: 04/13/19 09:01 Last Admin: 10/12/18 09:05 Dose: 400 unit Documented by: - Imaging and Cardiology Echo: pending - EKG Interpretation EKG results cardiology: personally reviewed (ST 100's with rare PVC) Consult Discharge Plan - Plan Referrals: Ryan Weir DO [Primary Care Provider] - <Steve Traore - Last Filed: 10/12/18 15:12> Date of Encounter: 10/12/18 - Attending Attestation I have personally performed a face to face evaluation on this patient. I have reviewed and agree with the documented findings and care plan as documented by the CUSTOMER CARE COORDINATOR. History and Exam by me shows: 78-year-old male admitted for cough, shortness of breath. Being managed for COPD exacerbation. Elevated troponin may be demand ischemia. Trend troponin till peak. Continue IV heparin. Obtain high quality echocardiogram ThanksSteve MD FAC Assessment and Plan Discussion w patient/family: The assessment and plan as outlined above was discussed with the patient and/or family members who expressed understanding and agreement. All questions were answered. Thank you for involving us in the care of your patient. Please call with any questions. History of Present Illness History of present illness: Mr. Ac is a 78 year old male All Systems Review: The remainder of the systems were reviewed and are negative Physical Examination Vital Signs, Last 4 Hours Temp Pulse Resp BP Pulse Ox 10/12/18 12:13 97.4 F L 128 21 172/93 94 Results 10/12/18 14:30 10/12/18 00:46 Lab Results 10/11/18 10/11/18 10/11/18 18:44 18:44 18:44 WBC 8.3 Hgb 12.3 L Hct 36.9 L Plt Count 264 INR 1.1 APTT 29.9 Sodium 138 Potassium 4.0 Chloride 100 Carbon Dioxide 29 BUN 14 Creatinine 1.01 Glucose 177 H Calcium 9.5 Magnesium 1.8 Total Bilirubin 0.7 AST 15 ALT 8 Alkaline Phosphatase 83 Troponin I < 0.03 B-Natriuretic Peptide 10/12/18 10/12/18 10/12/18 00:46 00:46 00:46 WBC 7.2 Hgb 11.4 L Hct 33.9 L Plt Count 253 INR APTT Sodium 137 Potassium 3.9 Chloride 102 Carbon Dioxide 25 BUN 12 Creatinine 0.91 Glucose 256 H Calcium 8.7 Magnesium 1.6 Total Bilirubin 0.5 AST 17 ALT 9 Alkaline Phosphatase 80 Troponin I 0.06 H* B-Natriuretic Peptide 10/12/18 10/12/18 10/12/18 00:46 06:09 13:05 WBC Hgb Hct Plt Count INR APTT Sodium Potassium Chloride Carbon Dioxide BUN Creatinine Glucose Calcium Magnesium Total Bilirubin AST ALT Alkaline Phosphatase Troponin I 0.07 H* 0.19 H* B-Natriuretic Peptide 117 H 10/12/18 10/12/18 14:30 14:30 WBC 11.0 D Hgb 14.4 D Hct 40.5 Plt Count 339 INR 1.1 APTT Sodium Potassium Chloride Carbon Dioxide BUN Creatinine Glucose Calcium Magnesium Total Bilirubin AST ALT Alkaline Phosphatase Troponin I B-Natriuretic Peptide
[2018-10-12] MEDS ORDERED: Ipratropium Neb 0.5 MG NEBULIZER IH PRN (11:17)
--- NOTE | 2018-10-12 11:20 | Event Note ---
Date of Encounter: 10/12/18 Time of Encounter: 08:00 patient was seen and examined at bedside. Vital signs reviewed Thin, in no acute distress, speaks in full sentences phoresis congested Tachycardic, S1 and S2 appreciated any murmurs Decreased breath sounds bilaterally, could not appreciate any crackles has mild wheezing in the anterior chest Moving all 4 extremities, could not appreciate any calf tenderness or discoloration Alert and oriented 3, no focal deficit Assessment and plan Acute COPD exacerbation Elevated troponin ? Secondary to supply versus demand mismatch from tachycardia rule out CAD Peripheral vascular disease s/p stent of left external iliac artery Type 2 diabetes Unintentional weight loss Continue with oxygen. Nasal cannula keep saturations above 92% Blood cultures and process Urine antigens ordered Continue with ceftriaxone and azithromycin de-escalate as per cultures Solu-Medrol 40 mg every 8 hours taper off Continue to monitor troponin- currently chest pain-free/ stat EKG Cardiology consulted Echocardiogram ordered respiratory viral panel Continue telemetry monitoring Changed DuoNeb's to avoid albuterol use as he is tachycardic DVT study of the lower extremity ( RLE has greater circum than the left) / wells criteria for PE is 1.5 heparin sc for DVt pophylaxis nutrition consult sliding scale insulin
[2018-10-12] MEDS ORDERED: Perflutren Lipid Microsphere 1.3 ML in 0.9 % Sodium Chloride 8.7 ML IVP ONE (11:42)
[2018-10-12] MEDS ORDERED: *HR* HYDROmorphone 4 MG TABLET PO PRN (14:09)
[2018-10-12] MEDS ORDERED: *HR* Heparin 5,000 UNIT/ML VIAL IVP PRN (14:10)
[2018-10-12] MEDS ORDERED: *HR* Heparin 5,000 UNIT/ML VIAL IVP ONE (14:10)
[2018-10-12 14:27] LABS: Adenovirus Not Detected (Not Detect); Bordetella Pertussis Not Detected (Not Detect); Chlamydophila pneumoniae Not Detected (Not Detect); Coronavirus 229E Not Detected (Not Detect); Coronavirus HKU1 Not Detected (Not Detect); Coronavirus NL63 Not Detected (Not Detect); Coronavirus OC43 Not Detected (Not Detect); Human Metapneumovirus Not Detected (Not Detect); Human Rhinovirus/Enterovirus Not Detected (Not Detect); Influenza A Subtype 2009 H1 Not Detected (Not Detect); Influenza A Untypeable Not Detected (Not Detect); Influenza B Not Detected (Not Detect); Mycoplasma pneumoniae Not Detected (Not Detect); Parainfluenza Virus 1 Not Detected (Not Detect); Parainfluenza Virus 2 Not Detected (Not Detect); Parainfluenza Virus 3 Not Detected (Not Detect); Parainfluenza Virus 4 Not Detected (Not Detect); Respiratory Syncytial Virus Not Detected (Not Detect)
[2018-10-12 14:55] LABS: Hematocrit 40.5 % (37.5-50.1); Mean Corpuscular HGB Conc 35.6 g/dL (31.6-35.5); Mean Corpuscular Hemoglobin 35.5 pg (28.0-33.3); Mean Corpuscular Volume 99.8 fL (83.0-100.0); Mean Platelet Volume 9.9 fL (9.4-12.4); Platelet Count 339 K/mcL (140-400); Red Blood Count 4.06 M/mcL (4.19-5.50); Red Cell Distribution Width 11.6 % (11.5-14.5)
[2018-10-12 14:57] LABS: Hemoglobin 14.4 g/dL (12.9-16.9)
[2018-10-12 15:01] LABS: Heparin anti-factor XA UFH 0.01 IU/mL (0.30-0.70)
[2018-10-12 15:02] LABS: INR 1.1; Prothrombin Time 12.4 Seconds (9.4-12.1)
[2018-10-12] MEDS: Heparin 25,000 UNIT/250 ML D5W 25,000 UNIT/250 ML IV.SOLN IVC SCH (15:17)
[2018-10-12] MEDS: Levalbuterol Neb 1.25 MG/3 ML IH SCH ×3 (15:41→22:18)
[2018-10-12] MEDS: MethylPREDNISolone 40 MG/ML VIAL IVP SCH (16:40)
[2018-10-12] MEDS: Azithromycin 500 MG in D5% in Water 250 ML IVPB SCH (21:47)
[2018-10-13] MEDS: MethylPREDNISolone 40 MG/ML VIAL IVP SCH ×3 (00:14→16:19)
[2018-10-13 02:40] LABS: Hemoglobin 14.3 g/dL (12.9-16.9); Mean Corpuscular HGB Conc 34.9 g/dL (31.6-35.5); Mean Corpuscular Hemoglobin 35.1 pg (28.0-33.3); Mean Corpuscular Volume 100.7 fL (83.0-100.0); Mean Platelet Volume 10.2 fL (9.4-12.4); Platelet Count 383 K/mcL (140-400); Red Blood Count 4.07 M/mcL (4.19-5.50); Red Cell Distribution Width 11.5 % (11.5-14.5); White Blood Count 12.2 K/mcL (4.3-11.1)
[2018-10-13 03:03] LABS: BUN/Creatinine Ratio 18 (6-26); Blood Urea Nitrogen 18 mg/dL (8-23); Calcium 9.8 mg/dL (8.6-10.3); Carbon Dioxide 25 mEq/L (23-29); Chloride 96 mEq/L (98-107); Chol/HDL Ratio 3.6 (0-4.9); Cholesterol 193 mg/dL (< 200); Glucose 271 mg/dL (70-105); HDL Cholesterol 53 mg/dL (40-59); LDL Cholesterol,Calculated 112 mg/dL (0-99); Osmolality,Calculated 289 (280-300); Potassium 3.1 mEq/L (3.5-5.1); Sodium 134 mEq/L (136-145); Triglycerides 138 mg/dL (< 150); eGFR For African Americans > 60 (> 60); eGFR For Non-African Americans > 60 (> 60)
[2018-10-13 03:14] LABS: Thyroid Stimulating Hormone 0.095 mcIU/mL (0.340-5.600)
[2018-10-13] MEDS: Levalbuterol Neb 1.25 MG/3 ML IH SCH ×4 (04:01→22:37)
[2018-10-13] MEDS: cefTRIAXone 2,000 MG in Water for inj. (sterile) 20 ML IVP SCH (08:25)
[2018-10-13] MEDS: *HR* HYDROmorphone 4 MG TABLET PO PRN ×3 (08:26→19:48)
[2018-10-13] MEDS: Cholecalciferol (D-3) 1,000 UNIT TABLET PO SCH (08:27)
[2018-10-13] MEDS: Loratadine 10 MG TABLET PO SCH (08:27)
[2018-10-13] MEDS: Gabapentin 300 MG CAPSULE PO SCH ×3 (08:27→21:51)
[2018-10-13] MEDS: Lisinopril 20 MG TABLET PO SCH (08:27)
[2018-10-13] MEDS: Thiamine (B-1) 100 MG TABLET PO SCH (08:27)
[2018-10-13] MEDS: Insulin LISPRO 300 UNITS/3 ML VIAL SQ SCH ×4 (08:28→21:59)
[2018-10-13] MEDS: Folic Acid 1 MG TABLET PO SCH (08:28)
--- NOTE | 2018-10-13 10:05 | Cardiology Progress Note ---
Date of Encounter: 10/13/18 Time of Encounter: 09:15 Assessment and Plan (1) Acute exacerbation of chronic obstructive airways disease Current Visit: Yes Status: Acute Per Cardiology: Presented with acute on chronic COPD exacerbation. Appears improved today. (2) Elevated troponin I measurement Current Visit: Yes Status: Acute Per Cardiology: Peak troponin of 0.19. Suspect type II demand ischemia in setting of acute on chronic COPD exacerbation and hypertension. Patient alert and oriented 3 today and cooperative. Willing to attempt repeat echo-- we will attempt limited with Definity. Discussed and reviewed with Dr. Traore, pending echo results regulations for possible stress test versus catheterization tomorrow. Discussed with primary service. On asa, plavix, BB, statin, Hep gtt., ACEI. Discussion w patient/family: The assessment and plan as outlined above was discussed with the patient and/or family members who expressed understanding and agreement. All questions were answered. Thank you for involving us in the care of your patient. Please call with any questions. Subjective Principal diagnosis: Elevated Trop Interval history: Patient alert and oriented 3 today. Cooperative. Reports short of breath has improved. He denies any chest pain or palpitations. Reports difficulty completing echo yesterday due to cold and back pain. Patient willing to proceed with attempt at repeat limited echo. Objective Vital Signs, Last 4 Hours Temp Pulse Resp BP Pulse Ox 10/13/18 07:16 98.2 F 124 18 162/78 94 General: Conversant, No Apparent Distress HEENT: Atraumatic, Normocephaly, Mucus Membranes Moist Neck: No JVD, Normal carotid pulses Cardiac: Reg Rate and Rhythm, Normal S1 and S2, No Murmur Lungs: Normal Breath Sounds, No Wheeze, Rales, Rhonchi, Other (Diminished breath sounds throughout) Neuro: Alert and responsive, No focal deficits noted Abdomen: Soft, Non-Tender Skin: No rashes noted on visualized skin Musculoskeletal: No Chest Wall Tenderness Extremities: No Clubbing, No Cyanosis, No Edema, Normal Pulses Results 10/13/18 01:36 10/13/18 01:36 Lab Results 10/12/18 10/12/18 10/12/18 00:46 13:05 14:30 WBC 11.0 D Hgb 14.4 D Hct 40.5 Plt Count 339 INR Sodium Potassium Chloride Carbon Dioxide BUN Creatinine Glucose Calcium Troponin I 0.19 H* B-Natriuretic Peptide 117 H TSH 10/12/18 10/12/18 10/13/18 14:30 20:53 01:36 WBC 12.2 H Hgb 14.3 Hct 41.0 Plt Count 383 INR 1.1 Sodium Potassium Chloride Carbon Dioxide BUN Creatinine Glucose Calcium Troponin I 0.19 H* B-Natriuretic Peptide TSH 10/13/18 10/13/18 10/13/18 01:36 01:36 07:30 WBC Hgb Hct Plt Count INR Sodium 134 L Potassium 3.1 L Chloride 96 L Carbon Dioxide 25 BUN 18 Creatinine 1.01 Glucose 271 H Calcium 9.8 Troponin I 0.18 H* 0.15 H* B-Natriuretic Peptide TSH 0.095 L - Imaging and Cardiology Echo: pending Consult Discharge Plan - Plan Referrals: Ryan Weir DO [Primary Care Provider] -
[2018-10-13] MEDS: Lactobacillus 1 EACH CAP.SPRINK PO SCH (10:22)
--- NOTE | 2018-10-13 12:29 | Internal Med Progress Note ---
Hospitalist Progress Note - Encounter Date of Encounter: 10/13/18 Time of Encounter: 08:00 - Subjective Interval History: She was seen and examined at bedside. Sitting up in bed eating breakfast. Reports that his shortness of breath has improved significantly since admission. Denies any fever or chills. Has had no chest pain and denies any palpitations. He discussed that he has difficulty completing the echo yesterday due to back pain however he is willing to retry to have the echo performed since his home pain medications have been resumed. All questions answered., He tolerating by mouth diet. - Exam Vitals: Temp Pulse Resp BP Pulse Ox 98.3 F 116 20 157/74 95 10/13/18 11:31 10/13/18 11:31 10/13/18 11:31 10/13/18 11:31 10/13/18 11:31 Exam: General: Patient is alert, oriented, no acute distress, thin, voice is not as congested as yesterday. Head: atraumatic, normocephalic, Eye: normal appearance, PERRL, no scleral icterus, no conjunctival injection ENT: mucous membranes moist, normal external ear exam Neck: normal inspection, trachea midline, full ROM, no carotid bruits Chest: normal inspection, symmetric chest rise Respiratory: Good respiratory effort. Decreased breath sounds bilaterally, wheezing has improved in the anterior chest. Cardiovascular: Tachycardic. s1 and s2 No clicks, rubs, gallops, or murmors. Abdomen: Bowel sounds present normoactive x-4 quadrants. Abdomen is soft, nondistended. no Epigastric tenderness. No guarding or rebound. No organomegaly noted, musculoskeletal: Spontaneously moving all extremities. no edema, no calf tenderness Skin: warm, dry, intact. Neuro: Alert and oriented x3 no focal deficit Psych: Patient's affect is normal - Assessment and Plan (1) Acute exacerbation of chronic obstructive airways disease Current Visit: Yes Status: Acute Assessment and Plan: Acute COPD exacerbation Has home oxygen however he is noncompliant. Continue with IV steroids will taper down Continue with DuoNeb's ( albuterol changed to xopenex) symbicort Continuous ceftriaxone and azithromycin Urine antigens are pending nursing staff aware to obtain urine sample (2) Elevated troponin I measurement Current Visit: Yes Status: Acute Assessment and Plan: troponin has continued to trend up - however now trending flat heparin ip on DAPT low dose BB was started TTE pending cardiology on board - will follow recommendations. DVT study of the lower extremity ( RLE has greater circum than the left) negative / wells criteria for PE is 1.5 ( low probability) (3) Type 2 diabetes mellitus Current Visit: Yes Status: Chronic Assessment and Plan: Continue with insulin sliding scale Adjust as per fingersticks A1c in a.m. (4) Hypokalemia Current Visit: Yes Status: Acute Assessment and Plan: replaced (5) Hypertension Current Visit: Yes Status: Acute Assessment and Plan: lisinopril increased to 30 mg will switch metoprolol to coreg for better BP control (6) DVT prophylaxis Current Visit: Yes Status: Acute Assessment and Plan: on heparin drip - Time Spent with Patient Total time spent is greater than 50% in coordination of care (as documented) at patient's floor/unit and/or counseling patient: 25 - 35 minutes Plan of Care Discussed with: patient Internal Medicine: Result - Labs CBC & Chem 7: 10/13/18 01:36 10/13/18 01:36 Labs: Short CBC 10/12/18 10/13/18 Range/Units 14:30 01:36 WBC 11.0 D 12.2 H (4.3-11.1) K/mcL Hgb 14.4 D 14.3 (12.9-16.9) g/dL Hct 40.5 41.0 (37.5-50.1) % Plt Count 339 383 (140-400) K/mcL BMP 10/13/18 01:36 Sodium 134 L Potassium 3.1 L Chloride 96 L Carbon Dioxide 25 BUN 18 Creatinine 1.01 Glucose 271 H Calcium 9.8 Cardiac Enzymes 10/12/18 10/12/18 10/13/18 Range/Units 13:05 20:53 01:36 Troponin I 0.19 H* 0.19 H* 0.18 H* (< 0.04) ng/mL 10/13/18 Range/Units 07:30 Troponin I 0.15 H* (< 0.04) ng/mL - ABG Interpretation ABG results: PT/INR, D-dimer PT 12.4 Seconds (9.4-12.1) H 10/12/18 14:30 - Impressions Impressions Echocardiogram 06/29/19 00:04 Impressions: Technically sub-optimal due to poor echocardiographic windows. Exam was not interpretable as patient refused completion of exam. No apical views were obtained. The parasternal views are grossly suboptimal due to poor windows. Sinus tachycardia. Findings: Study Quality * Technically sub-optimal due to poor echocardiographic windows. * Exam was not interpretable as patient refused completion of exam. No apical views were obtained. The parasternal views are grossly subopitimal due to poor windows. ECG Findings * Sinus tachycardia. Consult Discharge Plan - Plan Referrals: Ryan Weir DO [Primary Care Provider] - (3) Type 2 diabetes mellitus Qualifiers: Diabetes mellitus adjunct faculty for medical terminology insulin use: without adjunct faculty for medical terminology use Diabetes mellitus complication status: without complication Qualified Code(s): E11.9 - Type 2 diabetes mellitus without complications (5) Hypertension Qualifiers: Hypertension type: essential hypertension Qualified Code(s): I10 - Essential (primary) hypertension
[2018-10-13] MEDS ORDERED: Perflutren Lipid Microsphere 1.3 ML in 0.9 % Sodium Chloride 8.7 ML IVP ONE (12:48)
[2018-10-13] MEDS: *HR* Heparin 5,000 UNIT/ML VIAL IVP PRN ×2 (13:25→22:12)
[2018-10-13] MEDS: Aspirin 81 MG TAB.CHEW PO SCH (13:25)
[2018-10-13] MEDS: Heparin 25,000 UNIT/250 ML D5W 25,000 UNIT/250 ML IV.SOLN IVC SCH (16:46)
[2018-10-13] MEDS: Azithromycin 500 MG in D5% in Water 250 ML IVPB SCH (21:57)
[2018-10-13] MEDS: Budesonide/Formoterol 80/4.5 MDI IH SCH (22:37)
[2018-10-14] MEDS: MethylPREDNISolone 40 MG/ML VIAL IVP SCH (00:23)
[2018-10-14] MEDS: Levalbuterol Neb 1.25 MG/3 ML IH SCH ×2 (03:47→10:57)
[2018-10-14] MEDS: *HR* HYDROmorphone 4 MG TABLET PO PRN ×3 (04:19→14:00)
[2018-10-14 06:19] LABS: BUN/Creatinine Ratio 26 (6-26); Blood Urea Nitrogen 30 mg/dL (8-23); Calcium 9.4 mg/dL (8.6-10.3); Carbon Dioxide 26 mEq/L (23-29); Chloride 97 mEq/L (98-107); Glucose 302 mg/dL (70-105); Magnesium 1.9 mg/dL (1.6-2.6); Osmolality,Calculated 293 (280-300); Potassium 3.7 mEq/L (3.5-5.1); Sodium 133 mEq/L (136-145); eGFR For African Americans > 60 (> 60); eGFR For Non-African Americans > 60 (> 60)
[2018-10-14 06:33] LABS: Triiodothyronine (T3) Free 2.28 pg/mL (2.50-3.90)
[2018-10-14 06:38] LABS: Triiodothyronine (T3) Total 0.72 ng/mL (0.87-1.78)
[2018-10-14] MEDS ORDERED: predniSONE 20 MG TABLET PO SCH (09:00)
[2018-10-14] MEDS: Insulin LISPRO 300 UNITS/3 ML VIAL SQ SCH ×2 (09:24→13:01)
--- NOTE | 2018-10-14 09:32 | Cardiology Progress Note ---
Date of Encounter: 10/14/18 Time of Encounter: 09:00 Assessment and Plan (1) Elevated troponin I measurement Current Visit: Yes Status: Acute Elevated troponin (peak 0.19 with downtrend) in the setting of respiratory distress secondary to COPD exacerbation. Clinical suspicion for PNA (CXR negative), on IV atb. Pt. reported subjective fevers prior to admission. Suspect troponin elevation secondary to demand ischemia; no indication for cardiac rehab at this time. No acute ECG changes noted. Chest pain free. TTE shows preserved LVEF, 55%. Of note, [facility] 2013--mild, non-obstructive CAD. Reviewed with Dr. Bazzi, recommend medical therapy--continue asa, statin, and BB. Discussed with patient who prefers medical therapy at this time. Consider outpatient ischemic evaluation once COPD treated. No further recommendations as inpatient. Cardiology will sign-off. (2) Acute exacerbation of chronic obstructive airways disease Current Visit: Yes Status: Acute Dyspnea/wheezing improved. Continue supportive therapy per primary service. (3) PVD (peripheral vascular disease) Current Visit: Yes Status: Acute Hx of recent iliac stent, followed by Vascular surgery in the outpatient setting. asa, statin, plavix. Discussion w patient/family: The assessment and plan as outlined above was discussed with the patient and/or family members who expressed understanding and agreement. All questions were answered. Thank you for involving us in the care of your patient. Please call with any questions. Subjective Principal diagnosis: Elevated Trop Interval history: Seen and examined. No complaints upon exam today. States dyspnea improved, continues to have expiratory wheezes. No chest pain or discomfort. Results of TTE and plan discussed with patient. Objective Vital Signs, Last 4 Hours Temp Pulse Resp BP Pulse Ox 10/14/18 07:31 97.8 F 90 18 133/78 93 General: Conversant, No Apparent Distress HEENT: Atraumatic, Normocephaly, Mucus Membranes Moist Cardiac: Reg Rate and Rhythm, Normal S1 and S2 Lungs: Other (Few expiratory wheezes) Neuro: Alert and responsive Abdomen: Soft Skin: No rashes noted on visualized skin Musculoskeletal: No Chest Wall Tenderness Extremities: No Edema Results 10/13/18 01:36 10/14/18 05:47 Lab Results 10/14/18 05:47 Sodium 133 L Potassium 3.7 Chloride 97 L Carbon Dioxide 26 BUN 30 H Creatinine 1.17 Glucose 302 H Calcium 9.4 Magnesium 1.9 Active Medications Acetaminophen (Tylenol) 650 mg PO Q6HR PRN PRN Reason: Mild Pain/Fever Stop: 04/13/19 00:05 Aspirin (Aspirin) 81 mg PO DAILY [facility] Stop: 04/14/19 12:31 Last Admin: 10/13/18 13:25 Dose: 81 mg Documented by: Atorvastatin Calcium (Lipitor) 40 mg PO HS [facility] Stop: 04/13/19 21:01 Last Admin: 10/13/18 21:58 Dose: 40 mg Documented by: Baclofen (Lioresal) 10 mg PO TID PRN PRN Reason: Muscle Spasm Stop: 04/13/19 00:10 Budesonide/Formoterol Fumarate (Symbicort) 1 puff IH BIDR [facility]; Protocol Stop: 04/14/19 22:01 Last Admin: 10/13/18 22:37 Dose: 1 puff Documented by: Carvedilol (Coreg) 6.25 mg PO BIDWM [facility]; Protocol Stop: 04/14/19 17:01 Last Admin: 10/13/18 16:40 Dose: 6.25 mg Documented by: Clopidogrel Bisulfate (Plavix) 75 mg PO DAILY [facility] Stop: 04/13/19 09:01 Last Admin: 10/13/18 08:28 Dose: 75 mg Documented by: Dextrose/Water (Dextrose 50% (Syg)) 25 ml IVP AD PRN PRN Reason: Hypoglycemia Stop: 04/13/19 02:09 Folic Acid (Folic Acid) 1 mg PO DAILY [facility] Stop: 04/14/19 09:01 Last Admin: 10/13/18 08:28 Dose: 1 mg Documented by: Gabapentin (Neurontin) 600 mg PO TID [facility] Stop: 04/13/19 09:01 Last Admin: 10/13/18 21:51 Dose: 600 mg Documented by: Glucagon (Glucagen) 1 mg IM ONCE PRN PRN Reason: Hypoglycemia Stop: 04/13/19 02:09 Glucose (Gluctose) 15 gm PO ONCE PRN PRN Reason: Hypoglycemia Stop: 04/13/19 02:09 Glucose (Gluctose) 30 gm PO ONCE PRN PRN Reason: Hypoglycemia Stop: 04/13/19 02:09 Guaifenesin (Mucinex) 600 mg PO Q12H PRN PRN Reason: Cough Stop: 04/13/19 00:10 Heparin Sodium (Porcine) (Heparin) 4,000 unit IVP Q6HR PRN PRN Reason: SEE COMMENTS Stop: 04/13/19 14:11 Heparin Sodium (Porcine) (Heparin) 2,000 unit IVP Q6H PRN PRN Reason: SEE COMMENTS Stop: 04/13/19 14:11 Last Admin: 10/13/18 22:12 Dose: 2,000 unit Documented by: Hydromorphone HCl (Dilaudid) 8 mg PO Q4H PRN PRN Reason: back pain Last Admin: 10/14/18 04:19 Dose: 8 mg Documented by: Azithromycin 500 mg/ Dextrose 250 mls @ 252 mls/hr IVPB Q24H [facility] Stop: 04/13/19 21:01 Last Admin: 10/13/18 21:57 Dose: 252 mls/hr Documented by: Ceftriaxone Sodium 2,000 mg/ (Sterile Water) 20 mls @ 600 mls/hr IVP Q24H [facility] Stop: 04/13/19 09:01 Last Infusion: 10/13/18 08:27 Dose: Infused Documented by: Dextrose (Dextrose 5%) 1,000 mls @ 100 mls/hr IVC .Q10H PRN PRN Reason: HYPOGLYCEMIA Stop: 04/13/19 02:09 Heparin Sodium/Dextrose (Heparin 25,000 Unit/250 Ml D5w) 25,000 unit in 250 mls @ 9.792 mls/hr IVC .Q24H [facility]; Protocol Stop: 04/13/19 14:16 Last Titration: 10/14/18 06:23 Dose: Infused Documented by: Insulin Human Lispro (Humalog) 0 units SQ TIDAC [facility]; Protocol Stop: 04/13/19 07:31 Last Admin: 10/13/18 16:40 Dose: 8 units Documented by: Insulin Human Lispro (Humalog) 0 units SQ HS [facility]; Protocol Stop: 04/13/19 21:01 Last Admin: 10/13/18 21:59 Dose: 3 units Documented by: Ipratropium [place] (Atrovent Neb) 0.5 mg IH [id number] PRN PRN Reason: Shortness Of Breath/Wheezing Stop: 04/13/19 11:18 Lactobacillus Acidophilus/Rhamnosus (Culturelle) 2 each PO DAILY [facility] Stop: 04/14/19 09:16 Last Admin: 10/13/18 10:22 Dose: 2 each Documented by: Levalbuterol HCl (Xopenex) 1.25 mg IH [id number] [facility] Stop: 04/13/19 11:31 Last Admin: 10/14/18 03:47 Dose: 1.25 mg Documented by: Lisinopril (Zestril) 30 mg PO DAILY [facility]; Protocol Stop: 04/14/19 09:01 Last Admin: 10/13/18 08:27 Dose: 30 mg Documented by: Loperamide HCl (Imodium) 4 mg PO BID PRN PRN Reason: Diarrhea Stop: 04/14/19 09:10 Last Admin: 10/13/18 10:22 Dose: 4 mg Documented by: Loratadine (Claritin) 10 mg PO DAILY [facility] Stop: 04/13/19 09:01 Last Admin: 10/13/18 08:27 Dose: 10 mg Documented by: Melatonin (Melatonin) 1.5 mg PO HS PRN PRN Reason: Insomnia Stop: 04/13/19 02:07 Last Admin: 10/12/18 02:17 Dose: 1.5 mg Documented by: Naloxone HCl (Narcan) 0.4 mg IVP Q2MPRN PRN PRN Reason: SEE COMMENTS Stop: 04/13/19 00:05 Ondansetron HCl (Zofran) 4 mg IVP Q8HR PRN PRN Reason: Nausea And Vomiting Stop: 04/13/19 00:05 Prednisone (Prednisone) 40 mg PO DAILY [facility] Stop: 04/15/19 09:01 Thiamine HCl (Vitamin B-1) 100 mg PO DAILY [facility] Stop: 04/14/19 09:01 Last Admin: 10/13/18 08:27 Dose: 100 mg Documented by: Vitamin D (Vitamin D) 1,000 unit PO DAILY [facility] Stop: 04/13/19 09:01 Last Admin: 10/13/18 08:27 Dose: 1,000 unit Documented by: Vitamin E (Vitamin E) 400 unit PO DAILY [facility] Stop: 04/13/19 09:01 Last Admin: 10/13/18 08:28 Dose: 400 unit Documented by: - Imaging and Cardiology Echo: report reviewed Cardiac cath: report reviewed Other Results: 12 hour tele: avg HR=98 SR. - EKG Interpretation EKG results cardiology: personally reviewed Consult Discharge Plan - Plan Referrals: Ryan Weir DO [Primary Care Provider] -
[2018-10-14] MEDS: Aspirin 81 MG TAB.CHEW PO SCH (09:39)
[2018-10-14] MEDS: Loratadine 10 MG TABLET PO SCH (09:39)
[2018-10-14] MEDS: Lisinopril 20 MG TABLET PO SCH (09:39)
[2018-10-14] MEDS: Cholecalciferol (D-3) 1,000 UNIT TABLET PO SCH (09:39)
[2018-10-14] MEDS: Gabapentin 300 MG CAPSULE PO SCH (09:39)
[2018-10-14] MEDS: Lactobacillus 1 EACH CAP.SPRINK PO SCH (09:39)
[2018-10-14] MEDS: Thiamine (B-1) 100 MG TABLET PO SCH (09:39)
[2018-10-14] MEDS: cefTRIAXone 2,000 MG in Water for inj. (sterile) 20 ML IVP SCH (09:40)
[2018-10-14] MEDS: Folic Acid 1 MG TABLET PO SCH (09:40)
--- NOTE | 2018-10-14 10:27 | Discharge Summary ---
- NOTES TO OUTPATIENT PROVIDER Notes to Outpatient Provider: follow up with cardiology as OP for further testing. follow up with PCP to repeat thyroid function test in 4 weeks. follow lipid panels in 4 weeks. follow glucose logs and adjust oral diabetic medications accordingly. needs HRCT of the chest yearly as he is an active smo ker Orders not resulted at time of discharge: Pending orders 10/11/18 19:14 ECG 12 lead ECG [ECG] Stat 10/11/18 19:43 Culture,Blood [BC] Stat 10/12/18 06:00 ECG 12 lead ECG [ECG] AM 0600 10/12/18 08:19 EKG [ECG 12 lead ECG] [ECG] Stat 10/14/18 12:00 Heparin anti-factor XA UFH [COAG] Timed Date of Encounter: 10/14/18 Time of Encounter: 10:25 - Discharge Diagnosis (1) Acute exacerbation of chronic obstructive airways disease Priority: Primary Status: Acute (2) Elevated troponin I measurement Priority: Secondary Status: Acute (3) Type 2 diabetes mellitus Priority: Secondary Status: Chronic Qualifiers: Diabetes mellitus shelter insulin use: without shelter use Diabetes mellitus complication status: without complication Qualified Code(s): E11.9 - Type 2 diabetes mellitus without complications (4) Hypokalemia Priority: Secondary Status: Acute (5) Hypertension Priority: Secondary Status: Acute Qualifiers: Hypertension type: essential hypertension Qualified Code(s): I10 - Essential (primary) hypertension (6) DVT prophylaxis Priority: Secondary Status: Acute Hospital course: "Mr. Ac is a 78 year old male who presents with complaints of fever, cough, shortness of breath, and fatigue for the last 2-3 days. He has oxygen at home which he wears on rare occasions. However, he was using it 24/ for last 2 days and had increased his oxygen without relief. Therefore, she came to ER. Workup in the ER was concerning for pneumonia based upon clinical exam despite a negative chest x-ray. He was therefore started on antibiotics, aggressive fluid hydration, aerosols, and admitted to hospitalist service. When I saw the patient, he appeared to be in significant respiratory distress. He states he felt worse compared to his initial presentation in the ER. Symptoms were much worse as he finished a second liter bolus of fluids. I asked his nurse to stop his IV fluids, and I ordered a one-time dose of Lasix. He had significant improvement with that measure and is resting comfortably now. He does admit to having had fever and cough with mild productive sputum. He denies any wheezing. He denies any vomiting or diarrhea. He is a chronic long- time smoker and continues to smoke." Patient presented with above presentation and had above ED course. He was admitted and was started on IV steroids along with antibiotics and duo nebs with improvement of his respiratory status. Urine antigens were negative. respiratory viral panel negative. Troponin trended up from less than 0.03 to 0.19. Cardiology was consulted, he was started on beta jose, aspirin and statins along with heparin drip. Echocardiogram was performed which showed LVEF of 55%full report below. Elevated troponin was Suspect troponin elevation secondary to demand ischemia; no indication for cardiac rehab at this time. It was recommended by the cardiology team for him to continue with aspirin, statin and beta blockers for peripheral vascular disease he was also continue Plavix. he remained chest pain free through out hospitalization. tachycardia resolved with improvement of his respiratory status. his thyroid functions indicated sick euthyroid (TSH 0.095, T4 1.33 free t3 2.28) to ahve TFTs repeated in 4 weeks once acute illness has resolved. to lipid panel repeated in 4 weeks. He is to continue prednisone to complete a five-day course, he was prescribed nebulizers and inhaler for COPD and was counseled extensively on smoking cessation and compliance to his home oxygen. He is to complete 7 day course of antibiotics. Discussed elevated blood glucose levels and as per pharmacy notes he is to continue glipizide 5 mg daily - the additional 2.5 mg appeared to have been from 2017. as per he was taking medication as needed and they were advised to take 5 mg daily adn take glucose logs to PCP for further adjustment of his diabetic medication. they were instructed that if blood glucose of >400 call your PCP immediately. [employer] referral for nursing was made to assist with medications. he is to follow up with cardiology team for further cardiac testing. he is to follow up with pulmonology ( to have formal PFTs for COPD, HRCT- smoker ). he was counseled extensively on smoking cessation and he understands. he was counseled extensively on diet and nutrition along with smoking cessation. discussed above with and patient at bedside Impressions: Technically challenging study due to tachycardia and poor echocardiographic windows. Grossly LVEF 55%. Mild concentric left ventricular hypertrophy. Definity echo contrast was used. CXR:IMPRESSION: Stable portable study. Discharge discussed with: patient, family, nurse, social work, case management, independent marketing consultant Time spent discussing smoking cessation with patient: more than 10 minutes - Time Spent with Patient Total time spent providing and/or coordinating discharge services: Time spent: Greater than 30 minutes (35) - Discharge Medications Prescriptions: New Aspirin 81 mg PO DAILY #30 tab.chew Ipratropium Neb [Atrovent Neb] 0.5 mg IH [id number] PRN #30 inhsol PRN Reason: Shortness Of Breath/Wheezing Carvedilol [Coreg] 6.25 mg PO BIDWM #60 tablet Lactobacillus [Culturelle] 2 each PO DAILY #14 cap.sprink Folic Acid 1 mg PO DAILY #30 tablet Atorvastatin [Lipitor] 40 mg PO HS #30 tablet Cefdinir [Omnicef] 300 mg PO BID 5 Days #10 capsule predniSONE [PredniSONE] 40 mg PO DAILY 3 Days #6 tablet Budesonide/Formoterol 80/4.5 [Symbicort 80/4.5] 1 puff IH BIDR #1 inhaler Thiamine (B-1) [Vitamin B-1] 100 mg PO DAILY #30 tablet Levalbuterol Neb [Xopenex Neb] 1.25 mg IH [id number] PRN #30 vial.neb PRN Reason: Dyspnea Nebulizer and Compressor [Ombra Compressor System] 1 each MC Q6H PRN #1 each PRN Reason: Dyspnea Famotidine [Heartburn Prevention] 20 mg PO DAILY #30 tablet Continued GlipiZIDE [Glipizide Xl] 5 mg PO DAILY Gabapentin [Neurontin] 600 mg PO TID Lisinopril [Zestril] 20 mg PO BID PRN PRN Reason: Blood Pressure - High Cholecalciferol (D-3) [Vitamin D] 1,000 unit PO DAILY Baclofen [Lioresal] 10 mg PO TID PRN PRN Reason: Muscle Spasm Vitamin E Acid Succinate [Vitamin E] 400 units PO DAILY Guaifenesin [Mucinex] 600 mg PO DAILY PRN PRN Reason: CHEST CONGESTION Cetirizine HCl [Zyrtec] 10 mg PO DAILY PRN PRN Reason: Allergy Symptoms Hydromorphone HCl [Dilaudid] 8 mg PO Q4H PRN PRN Reason: Pain Ondansetron HCl [Zofran] 4 mg PO Q8H PRN PRN Reason: NAUSEA/VOMITING Clopidogrel [Plavix] 75 mg PO QAM Discontinued GlipiZIDE XL (24 HR) [Glucotrol XL] 2.5 mg PO DAILY PRN PRN Reason: Blood Sugar - High Lisinopril [Zestril] 10 mg PO BID PRN PRN Reason: Blood Pressure - High Home Medications: Baclofen [Lioresal] 10 mg PO TID PRN 08/08/17 [History] Cholecalciferol (D-3) [Vitamin D] 1,000 unit PO DAILY 08/08/17 [History] Gabapentin [Neurontin] 600 mg PO TID 08/08/17 [History] GlipiZIDE [Glipizide Xl] 5 mg PO DAILY 08/08/17 [History] Lisinopril [Zestril] 20 mg PO BID PRN 08/08/17 [History] Cetirizine HCl [Zyrtec] 10 mg PO DAILY PRN 10/11/18 [History] Guaifenesin [Mucinex] 600 mg PO DAILY PRN 10/11/18 [History] Vitamin E Acid Succinate [Vitamin E] 400 units PO DAILY 10/11/18 [History] Hydromorphone HCl [Dilaudid] 8 mg PO Q4H PRN 10/12/18 [History] Clopidogrel [Plavix] 75 mg PO QAM 10/13/18 [History] Ondansetron HCl [Zofran] 4 mg PO Q8H PRN 10/13/18 [History] Aspirin 81 mg PO DAILY #30 tab.chew 10/14/18 [Rx] Atorvastatin [Lipitor] 40 mg PO HS #30 tablet 10/14/18 [Rx] Budesonide/Formoterol 80/4.5 [Symbicort 80/4.5] 1 puff IH BIDR #1 inhaler 10/14/18 [Rx] Carvedilol [Coreg] 6.25 mg PO BIDWM #60 tablet 10/14/18 [Rx] Cefdinir [Omnicef] 300 mg PO BID 5 Days #10 capsule 10/14/18 [Rx] Famotidine [Heartburn Prevention] 20 mg PO DAILY #30 tablet 10/14/18 [Rx] Folic Acid 1 mg PO DAILY #30 tablet 10/14/18 [Rx] Ipratropium Neb [Atrovent Neb] 0.5 mg IH [id number] PRN #30 inhsol 10/14/18 [Rx] Lactobacillus [Culturelle] 2 each PO DAILY #14 cap.sprink 10/14/18 [Rx] Levalbuterol Neb [Xopenex Neb] 1.25 mg IH [id number] PRN #30 vial.neb 10/14/18 [Rx] Nebulizer and Compressor [Ombra Compressor System] 1 each MC Q6H PRN #1 each 10/14/18 [Rx] Thiamine (B-1) [Vitamin B-1] 100 mg PO DAILY #30 tablet 10/14/18 [Rx] predniSONE [PredniSONE] 40 mg PO DAILY 3 Days #6 tablet 10/14/18 [Rx] Allergies/Adverse Reactions: Allergy/AdvReac Type Severity Reaction Status Date / Time morphine Allergy Hives Verified 10/13/18 17:20 Date of admission: 10/12/18 00:04 Primary care physician: Ryan Weir DO Consults: 10/11/18 23:09 Consult to Nutrition [CONS] Routine Comment: Consulting Provider: NUTRITION Reason for Dietary Consult: MST Score 10/12/18 08:13 Consult to Cardiology [CONS] Routine Comment: Consulting Provider: Cardiology Yocasta Reason for Consult: elevated trponins Call Completed: No 10/12/18 11:19 Consult to Case Management [CONS] Routine Comment: Consult to Nutrition [CONS] Routine Comment: Consulting Provider: NUTRITION Reason for Dietary Consult: PO Supplementation Consult to Physical Therapy [CONS] Routine Comment: Evaluate, develop and implement POC Reason for Consult: dispostion Does patient have active BEDREST order?: No Is patient medically & hemodynamically stable?: Yes Patient assessed for mobility or mobilized this visit?: Yes OT [Consult to Occupational Therapy] [CONS] Routine Comment: Evaluate, develop and implement POC Reason for Consult: disposition Does patient have active BEDREST order?: No Is patient medically & hemodynamically stable?: Yes Patient assessed for mobility or mobilized this visit?: Yes 10/13/18 10:06 Consult to Cardiac Rehabilitation-Phase1 [CONS] Routine Comment: Reason for Consult: elevated trop Call Completed: No 10/14/18 08:59 Consult to Nurse Navigator [CONS] Routine Comment: copd - Constitutional Vitals: Temp Pulse Resp BP Pulse Ox 97.8 F 90 18 133/78 93 10/14/18 07:31 10/14/18 07:31 10/14/18 07:31 10/14/18 07:31 10/14/18 07:31 Exam: General: Patient is alert, oriented, no acute distress, thin, voice is not as congested as yesterday. Head: atraumatic, normocephalic, Eye: normal appearance, PERRL, no scleral icterus, no conjunctival injection ENT: mucous membranes moist, normal external ear exam Neck: normal inspection, trachea midline, full ROM, no carotid bruits Chest: normal inspection, symmetric chest rise Respiratory: Good respiratory effort. Decreased breath sounds bilaterally, wheezing has improved in the anterior chest. Cardiovascular: Tachycardic. s1 and s2 No clicks, rubs, gallops, or murmors. Abdomen: Bowel sounds present normoactive x-4 quadrants. Abdomen is soft, nondistended. no Epigastric tenderness. No guarding or rebound. No organomegaly noted, musculoskeletal: Spontaneously moving all extremities. no edema, no calf tenderness Skin: warm, dry, intact. Neuro: Alert and oriented x3 no focal deficit Psych: Patient's affect is normal - Patient Status Disposition: Home Health Service Condition: Fair Functional capacity at discharge: independent ambulation Overall status at discharge: patient is progressing back to baseline - Discharge Instructions Follow Up With: Alexis Parsons MD [Non-Partnered Physician] - 10/31/18 1:15 pm (colonoscopy within 1-2 weeks) Manuel Espinoza Jr, MD [Partnered Physician] - 10/21/18 12:00 pm (follow up from an inpatient stay at [facility] within 1-2 weeks) Leena Barney CNP [Partnered Physician] - (Web-requested, the offive will call the patient to schedule a follow up appointment. ) Mc Schwarz MD [Partnered Physician] - 10/31/18 9:30 am (Follow up as scheduled. ) Ryan Weir DO [Primary Care Provider] - (Web-requested, the office will call to schedule an appointment. ) - Diet and Activity Activity: increase activity as tolerated Diet: diabetic diet, low salt diet
--- NOTE | 2018-10-14 10:47 | Physician Discharge Referral ---
Home Health/Hosp Referral Info Transfer to: Home Health Provider in Charge Post Discharge: PCP - Diagnosis (1) Acute exacerbation of chronic obstructive airways disease Status: Acute (2) Elevated troponin I measurement Status: Acute (3) Type 2 diabetes mellitus Status: Chronic (4) Hypokalemia Status: Acute (5) Hypertension Status: Acute (6) DVT prophylaxis Status: Acute - Respiratory Orders Oxygen / L per min Smoking Cessation: Smoking cessation has been advised. For more information, call the [place] Tobacco Quit Line at 8-504-GZCU-NOW. - Diet/Nutrition Diet/Nutrition Orders: Cardiac (diabetic) - Services Needed Following services are medically necessary services: Nursing, Home Health Aide, Physical Therapy - Transfer Medications Prescriptions: Aspirin 81 mg PO DAILY #30 tab.chew Ipratropium Neb [Atrovent Neb] 0.5 mg IH [id number] PRN #30 inhsol PRN Reason: Shortness Of Breath/Wheezing Carvedilol [Coreg] 6.25 mg PO BIDWM #60 tablet Lactobacillus [Culturelle] 2 each PO DAILY #14 cap.sprink Folic Acid 1 mg PO DAILY #30 tablet Atorvastatin [Lipitor] 40 mg PO HS #30 tablet Nebulizer and Compressor [Ombra Compressor System] 1 each MC Q6H PRN #1 each PRN Reason: Dyspnea Cefdinir [Omnicef] 300 mg PO BID 5 Days #10 capsule predniSONE [PredniSONE] 40 mg PO DAILY 3 Days #6 tablet Budesonide/Formoterol 80/4.5 [Symbicort 80/4.5] 1 puff IH BIDR #1 inhaler Thiamine (B-1) [Vitamin B-1] 100 mg PO DAILY #30 tablet Levalbuterol Neb [Xopenex Neb] 1.25 mg IH [id number] PRN #30 vial.neb PRN Reason: Dyspnea Home Medications: Baclofen [Lioresal] 10 mg PO TID PRN 08/08/17 [History] Cholecalciferol (D-3) [Vitamin D] 1,000 unit PO DAILY 08/08/17 [History] Gabapentin [Neurontin] 600 mg PO TID 08/08/17 [History] GlipiZIDE [Glipizide Xl] 5 mg PO DAILY 08/08/17 [History] Lisinopril [Zestril] 20 mg PO BID PRN 08/08/17 [History] Cetirizine HCl [Zyrtec] 10 mg PO DAILY PRN 10/11/18 [History] Guaifenesin [Mucinex] 600 mg PO DAILY PRN 10/11/18 [History] Vitamin E Acid Succinate [Vitamin E] 400 units PO DAILY 10/11/18 [History] Hydromorphone HCl [Dilaudid] 8 mg PO Q4H PRN 10/12/18 [History] Clopidogrel [Plavix] 75 mg PO QAM 10/13/18 [History] Ondansetron HCl [Zofran] 4 mg PO Q8H PRN 10/13/18 [History] Aspirin 81 mg PO DAILY #30 tab.chew 10/14/18 [Rx] Atorvastatin [Lipitor] 40 mg PO HS #30 tablet 10/14/18 [Rx] Budesonide/Formoterol 80/4.5 [Symbicort 80/4.5] 1 puff IH BIDR #1 inhaler 10/14/18 [Rx] Carvedilol [Coreg] 6.25 mg PO BIDWM #60 tablet 10/14/18 [Rx] Cefdinir [Omnicef] 300 mg PO BID 5 Days #10 capsule 10/14/18 [Rx] Folic Acid 1 mg PO DAILY #30 tablet 10/14/18 [Rx] Ipratropium Neb [Atrovent Neb] 0.5 mg IH [id number] PRN #30 inhsol 10/14/18 [Rx] Lactobacillus [Culturelle] 2 each PO DAILY #14 cap.sprink 10/14/18 [Rx] Levalbuterol Neb [Xopenex Neb] 1.25 mg IH [id number] PRN #30 vial.neb 10/14/18 [Rx] Nebulizer and Compressor [Ombra Compressor System] 1 each MC Q6H PRN #1 each 10/14/18 [Rx] Thiamine (B-1) [Vitamin B-1] 100 mg PO DAILY #30 tablet 10/14/18 [Rx] predniSONE [PredniSONE] 40 mg PO DAILY 3 Days #6 tablet 10/14/18 [Rx] Allergies/Adverse Reactions: Allergy/AdvReac Type Severity Reaction Status Date / Time morphine Allergy Hives Verified 10/13/18 17:20 Certification: Further, I certify that my clinical findings support that this patient is homebound (i.e. absences from home require considerable and taxing effort and are for medical reasons or voodoo services or infrequently or short duration when for other reasons) because: Homebound Reason: Patient requires assistance of a person or device to safely leave home Attestation: My signature below is to certify that this patient is under my care and that I, or nurse practitioner, or a physician's spa assistant manager working with me, has a [id number] encounter with this patient.
[2018-10-14] MEDS: Budesonide/Formoterol 80/4.5 MDI IH SCH (10:57)
[2018-10-14 12:26] VITALS: BP 114/61
--- NOTE | 2018-10-14 15:56 | Electrocardiograph Report ---
[place] [address] Test Date: 2018-10-12 Pat Name: Yannick Ac Department: 115 Room: 3A44 Gender: M Financial Sales Assistant: BHARATI : 1940 Requested By: Michelle Ch Order Number: [id number] Reading MD: Doron Park Measurements Intervals [place] Rate: 103 P: 75 SC: 150 QRS: -23 QRSD: 117 T: 74 QT: 343 QTc: 403 Interpretive Statements SINUS TACHYCARDIA rivcd Electronically Signed On 10-14-2018 15:54:35 EDT by Doron Park
[2018-10-14] MEDS ORDERED: Cefdinir 300 MG CAPSULE PO SCH (21:00)
--- NOTE | 2018-10-15 09:48 | Electrocardiograph Report ---
[facility] Test Date: 2018-10-11 Pat Name: Yannick Ac Department: [id number] Room: 3A44 Gender: M Tire Specialist: : 1940 Requested By: Jc Dugan Order Number: [id number] Reading MD: Heriberto Weinberg Measurements Intervals [place] Rate: 107 P: 75 MN: 148 QRS: -1 QRSD: 102 T: 77 QT: 336 QTc: 449 Interpretive Statements Sinus tachycardia Ventricular premature complex Low voltage, extremity leads Electronically Signed On 10-15-2018 9:46:44 EDT by Heriberto Weinberg
--- NOTE | 2018-10-15 16:52 | Electrocardiograph Report ---
[address] [address] Test Date: 2018-10-12 Pat Name: Yannick Ac Department: 115 Room: 3A44 Gender: M Flow Coordinator: BHARATI : 1940 Requested By: Trent Jolly Order Number: [id number] Reading MD: Aidee Yen Measurements Intervals [place] Rate: 107 P: 77 LA: 152 QRS: -18 QRSD: 118 T: 75 QT: 332 QTc: 395 Interpretive Statements SINUS TACHYCARDIA WITH OCCASIONAL SUPRAVENTRICULAR PREMATURE COMPLEXES LOW QRS VOLTAGE IN EXTREMITY LEADS MODERATE INTRAVENTRICULAR CONDUCTION DELAY Electronically Signed On 10-15-2018 16:50:32 EDT by Aidee Yen
== END 2018-10-14 15:14 | disposition home or self-care (01) | DRG 190 ==
LOC: 3ANU 18:38 → EMEROOARM 18:38 → 3ANU 22:21 → SUATTDRO 10-12 00:04
PROVIDERS: ADMIT Pediatrics; ATTEND Internal Medicine